=== PATIENT | female | born 1935 | race Caucasian/White ===

== ENCOUNTER 2017-10-14 13:00 | Inpatient (IN) | payer MEDICARE, BC ==
[2017-10-19] MEDS ORDERED: METOCLOPRAMIDE 10 MG TABLET PO ONE (06:00)
[2017-10-19] MEDS ORDERED: CEFAZOLIN 2 Gram 2 GM/50 ML BAG IVPB ONE (06:00)
[2017-10-19] MEDS ORDERED: VANCOMYCIN HCL 1,000 MG in DEXTROSE 5 % IN WATER 250 ML IVPB ONE ×2 (06:00)
[2017-10-19] MEDS ORDERED: CELECOXIB 100 MG CAPSULE PO ONE (06:00)
[2017-10-19] MEDS ORDERED: FAMOTIDINE 20MG TABLET PO ONE (06:00)
[2017-10-19] MEDS ORDERED: MECLIZINE 25 MG TABLET PO ONE (06:00)
[2017-10-19 12:57] LABS: ABO GROUP A; ANTIBODY SCREEN NEGATIVE (NEGATIVE); RH TYPE NEGATIVE
[2017-10-19] MEDS ORDERED: SEVOFLURANE 250 ML INH ONE (14:00)
[2017-10-19] MEDS ORDERED: HYDROMORPHONE HCL 2 MG/ML VIAL IV ONE (14:00)
[2017-10-19] MEDS ORDERED: EPHEDRINE SULFATE 50 MG/ML ML IV ONE (14:00)
[2017-10-19] MEDS ORDERED: LIDOCAINE 2% MDV (20MG/ML) 20ML VIAL IV ONE (14:00)
[2017-10-19] MEDS ORDERED: FENTANYL PF 100MCG/2ML VIAL IV ONE (14:00)
[2017-10-19] MEDS ORDERED: MIDAZOLAM HCL 2MG/2ML VIAL IV ONE (14:00)
[2017-10-19] MEDS ORDERED: ONDANSETRON HCL IV 4 MG/2 ML VIAL IVP ONE (14:00)
[2017-10-19] MEDS ORDERED: PROPOFOL 10 MG/ML VIAL IV ONE (14:00)
[2017-10-19] MEDS ORDERED: ONDANSETRON HCL IV 4 MG/2 ML VIAL IVP PRN (16:58)
[2017-10-19] MEDS ORDERED: ZOLPIDEM TARTRATE 5 MG TABLET PO PRN (16:58)
[2017-10-19] MEDS ORDERED: NALOXONE 0.4 MG/1 ML VIAL IVP PRN (16:58)
[2017-10-19] MEDS ORDERED: DIPHENHYDRAMINE HCL 25 MG CAPSULE PO PRN (16:58)
[2017-10-19] MEDS ORDERED: KETOROLAC 30 MG/ML VIAL IVP PRN ×2 (16:58)
[2017-10-19] MEDS ORDERED: HYDROMORPHONE HCL 2 MG/ML VIAL IM PRN (16:58)
[2017-10-19] MEDS ORDERED: MAGNESIUM HYDROXIDE 30 ML UDC PO PRN (16:58)
[2017-10-19] MEDS ORDERED: AL HYDROX/MAG HYDROX 30ML UD PO PRN (16:58)
[2017-10-19] MEDS ORDERED: ACETAMINOPHEN W/ CODEINE 300MG/60MG TABLET PO PRN ×2 (16:58)
[2017-10-19] MEDS ORDERED: ACETAMINOPHEN 325 MG TAB PO PRN (16:58)
[2017-10-19] MEDS ORDERED: BISACODYL 10 MG SUPP RC PRN (16:58)
[2017-10-19] MEDS ORDERED: BENZONATATE 100 MG CAPSULE PO PRN (17:42)
[2017-10-19] MEDS ORDERED: DICLOFENAC TOP PRN (17:45)
[2017-10-19] MEDS: DOCUSATE SODIUM 100 MG CAPSULE PO SCH (22:17)
[2017-10-19] MEDS: PATIENT OWN MED: CLOPIDOGREL 75 MG PO SCH (22:19)
[2017-10-19] MEDS: PATIENT OWN MED: AZATHIOPRINE 50 MG PO SCH (22:19)
[2017-10-19] MEDS: PATIENT OWN MED: LOSARTAN 50 MG PO SCH (22:20)
[2017-10-19] MEDS: NITROFURANTOIN 100 MG PO SCH (22:21)
[2017-10-19] MEDS: PATIENT OWN MED: OMEPRAZOLE 20 MG PO SCH (22:21)
[2017-10-19] MEDS: PINDOLOL 5 MG PO SCH (22:22)
[2017-10-19] MEDS: CEFAZOLIN 2 Gram 2 GM/50 ML BAG IVPB SCH (22:23)
[2017-10-19] MEDS: POTASSIUM CHLORIDE/D5-0.9%NACL 20 MEQ/1,000 ML BAG IV SCH (22:41)
--- NOTE | 2017-10-19 22:46 | Operative Note ---
DATE OF SURGERY: 10/19/2017 PREOPERATIVE DIAGNOSIS: END-STAGE ARTHROSIS OF THE RIGHT KNEE. POSTOPERATIVE DIAGNOSIS: END-STAGE ARTHROSIS OF THE RIGHT KNEE. PROCEDURE: Cemented right total knee arthroplasty using [employer] Sobia II components, with a size 4 [place] Chrome femur, a size 3 stemmed tibial baseplate, a 9 mm lipped tibial insert, and a 32 mm all-plastic patella. STAFF SURGEON: BAM HOLLINGSWORTH M.D. ANESTHESIA: GENERAL. PREPARATION: CHLORAPREP. INDIVIDUAL CONSIDERATIONS: NONE. PROCEDURE: The patient was taken to the Operating Room and placed supine on the operating table. She had a successful induction of a general anesthetic. Her right lower extremity was prepped and then draped in the usual fashion. The limb was elevated and the tourniquet was inflated to 215 mmHg. The patient had a midline approach to the knee. Sharp dissection was carried down through the skin and subcutaneous tissue. Small veins were coagulated with a Bovie. A medial arthrotomy was performed. The patella was everted and the knee was flexed. The patient basically had [id number] contact throughout. There were large osteophytes consistent more with a degenerative knee. The fat pad was resected, the ACL was basically gone. The capsule was released from the medial proximal tibia and provisional anterior meniscectomies were performed. The initial femoral chief pilot hole was then made free hand. The intramedullary femoral cutting jig was placed. It was cut in 7.0 degrees of valgus and adjusted for rotation, secured with pins for a 10 mm resection. The initial transverse cut was then made. The skin guide was placed for the anterior and posterior chief pilot holes. It was found that a size 4 translated anteriorly 2 mm fit nicely. The anterior and posterior cuts followed by the chamfer cuts were made, osteophytes were removed, and a size 4 trial was placed and found to fit well. The tibia was brought forward and the remainder of the meniscal remnants were removed with a Bovie. The extraarticular tibial cutting jig was placed. It was cut in neutral with a 3 degree AP slope. Care was taken to adjust for rotation and flexion using the extraarticular alignment guide and bony landmarks. It was found that after removing osteophytes, I could easily fit a size 3 baseplate. It was adjusted for rotation and secured with pins. With the 9 mm insert and the femoral trial, there was excellent motion and stability. The femoral chief pilot holes were impacted and the triflange tibial stamp was impacted and these trial components were removed. The patient had a relatively thick patella and roughly 9 mm of bone was removed freehand. It was found I could easily fit a 32 patella and the three chief pilot holes were then drilled. The tourniquet was then let down and hemostasis was obtained posteriorly and then placed back up again. The knee was then thoroughly irrigated out with pulsatile Betadine and saline to remove any visual or palpable debris. Bony surfaces were then dried. The size 3 stemmed tibial baseplate was cemented into place, followed by impaction of the 9 mm lipped tibial insert, followed by cementing in the size 4 [place] Chrome femur, followed by cementing in the 32 mm all-plastic patella. Implant surfaces were compressed, excess cement was removed, and after the cement had set, there was excellent motion and stability, ligamentous balance, rotation and alignment and patellofemoral tracking were normal. No lateral release was required. Again, thorough irrigation. I then infiltrated the skin and periosteum and subcutaneous tissue with 30 mL of 0.5% Marcaine with Epinephrine. The capsule was then closed with a running #2 Quill after dropping the tourniquet and getting hemostasis. The subcu was closed in layers with a running 0 Quill and the skin was closed with brock. I then mixed 30 mL of saline with a gram of Tranexamic Acid and injected it into the knee and a sterile Bulkee compressive NIKHIL-type dressing was applied. The patient tolerated the procedure well. Needle and sponge counts were correct, estimated blood loss was minimal and she was taken back to Recovery in good condition. There were no complications. JOB NUMBER: [id number] MTDD
[2017-10-19] MEDS: PATIENT OWN MED: DIPHENHYDRAMINE 25 MG PO SCH (22:50)
[2017-10-20] MEDS: HYDROCODONE/APAP 10/325 TABLET PO PRN ×5 (00:42→21:18)
[2017-10-20] MEDS: CEFAZOLIN 2 Gram 2 GM/50 ML BAG IVPB SCH ×2 (06:57→15:24)
[2017-10-20 07:18] LABS: BLOOD UREA NITROGEN 23 mg/dL (8-23); CREATININE 0.9 mg/dL (0.5-0.9); EST GLOMERULAR FILTRATION RATE > 60 mL/min; GLUCOSE,RANDOM 167 mg/dL (74-109)
[2017-10-20] MEDS: FERROUS SULFATE 325 MG TAB PO SCH (10:20)
[2017-10-20] MEDS: RIVAROXABAN 10 MG TABLET PO SCH (10:20)
[2017-10-20] MEDS: DOCUSATE SODIUM 100 MG CAPSULE PO SCH ×2 (10:20→21:19)
[2017-10-20] MEDS: PATIENT OWN MED: ASPIRIN 81 MG PO SCH (10:24)
[2017-10-20] MEDS: GABAPENTIN 100 MG PO SCH (10:24)
[2017-10-20] MEDS: IPRATROPIUM INH SCH (10:25)
[2017-10-20] MEDS: PATIENT OWN MED: LOSARTAN 50 MG PO SCH ×2 (10:27→21:24)
[2017-10-20] MEDS: METHYLCOBALAMIN PO SCH (10:28)
[2017-10-20] MEDS: NITROFURANTOIN 100 MG PO SCH ×2 (10:29→21:24)
[2017-10-20] MEDS: PATIENT OWN MED: OMEPRAZOLE 20 MG PO SCH ×2 (10:30→21:25)
[2017-10-20] MEDS: PINDOLOL 5 MG PO SCH ×2 (10:33→21:25)
--- NOTE | 2017-10-20 10:37 | Rehab Evaluation ---
Patient Information - Patient Information Diagnosis: DJD right knee Ordered Treatment: OT Evaluate and Treat Status: Initial Evaluation Surgery: Yes (right total knee) Date of Surgery: 10/19/17 Past Medical/Surgical Hx: PAST MEDICAL/SURGICAL HISTORY Past Surgical History hyst laparotomy bilat cats c scopes EGD with Dilitation PMH - Respiratory Hx Respiratory Disorders Yes Hx Bronchitis Yes Hx Pneumonia Yes Hx Sleep Apnea Yes Hx of CPAP No Hx of SOB Yes: once in a while PMH - Cardiovascular Hx Cardiovascular Disorders Yes Hx Edema Yes: minimally at night at times Hx Hypertension Yes: on meds good control runs low most of the time Hx Irregular Heartbeat Yes: PVC's and PAC's sometimes Hx Palpitations Yes Hx Vascular Disease Yes: has leaky aortic valve Exercise Tolerance Poor Hx Transient Ischemic Attacks Yes: yrs ago no residual on Plavix (TIA) Comment: r/t knee and back PMH - Neuro Hx Neurological Disorders Yes Hx Dizziness Yes: on Gabapentin Hx Headaches Yes: occassionally Hx Transient Ischemic Attacks Yes: yrs ago no residual on Plavix (TIA) PMH - GI Hx Gastrointestinal Disorders Yes Hx Gastroesophageal Reflux Yes 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 She has 1 step, a landing and 1 step at her entrance, no handrailing. She has a walk in shower with 2 seats and a standard height toilet. She has grab bars that are being installed soon and she is borrowing a commode. She has a 4 wheeled walker, 2 wheeled walker and straight cane. She generally uses a straight cane for mobility. 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.) Social History: Detail (Son lives in [place], daughter lives in [facility].) Precautions: [place], Fall, Other (WBAT right knee) - Time With Patient Total Time Spent With Patient (Min): 45 Treatment Procedures: Detail (OT eval low complexity) Subjective Information - Subjective Information Per Patient Objective Data - Pain Pain Present: Yes (05/22) - Mental Status Patient Orientation: Oriented x3 - Visual Perception Appears within normal limits for therapeutic activities (Pt wears glasses) - ROM Within normal limits (Manuel UE AROM WNL) - Strength/Tone Within normal limits (Manuel UE strength WNL) - Coordination Appears within normal limits for therapeutic activities - Bed Mobility Independent (Ind with supine to sit and sit to supine) - Transfers Independent (Ind with sit to stand from EOB and toilet heights.) - Balance Balance Sitting: Good Balance Standing: Good - Sensation Intact - Gait Detail (Pt ambulated in room and hallway with 2 wheeled walker Indly.) - ADL's/IADL's Detail (Pt educated and demonstrated learning of modified LE dressing techniques including doffing slipper socks, briefs and gown and donning underpants, pants, tennis shoes, bra and shirt. She was able to demonstrate Ind with toileting. Reviewed shower and kitchen safety and modifications, pt was able to verbalize understanding.) Therapy Assessment - Therapy Assessment Detail (Pt is safe and Ind with total body dressing and toileting using modified techniques.) Problem List - Problem List Occupational Therapy Problem List: Detail (No current OT problems identified.) Goals - Goals Occupational Therapy Goals: No current IP OT goals identified. Prognosis - Prognosis Good Plan - Plan Occupational Therapy Plan: No further IP OT recommended. Thank you for this referral.
[2017-10-20] MEDS ORDERED: TRANEXAMIC ACID 1,000 MG/10 ML ML IV ONE (10:49)
[2017-10-20] MEDS ORDERED: BUPIVACAINE 0.5% W/EPI MPF 30 ML VIAL IVP ONE (10:49)
--- NOTE | 2017-10-20 11:30 | Rehab Evaluation ---
Patient Information - Patient Information Diagnosis: DJD right knee Ordered Treatment: PT Evaluate and Treat Status: Initial Evaluation Surgery: Yes (right total knee) Date of Surgery: 10/19/17 Past Medical/Surgical Hx: PAST MEDICAL/SURGICAL HISTORY Past Surgical History hyst laparotomy bilat cats c scopes EGD with Dilitation PMH - Respiratory Hx Respiratory Disorders Yes Hx Bronchitis Yes Hx Pneumonia Yes Hx Sleep Apnea Yes Hx of CPAP No Hx of SOB Yes: once in a while PMH - Cardiovascular Hx Cardiovascular Disorders Yes Hx Edema Yes: minimally at night at times Hx Hypertension Yes: on meds good control runs low most of the time Hx Irregular Heartbeat Yes: PVC's and PAC's sometimes Hx Palpitations Yes Hx Vascular Disease Yes: has leaky aortic valve Exercise Tolerance Poor Hx Transient Ischemic Attacks Yes: yrs ago no residual on Plavix (TIA) Comment: r/t knee and back PMH - Neuro Hx Neurological Disorders Yes Hx Dizziness Yes: on Gabapentin Hx Headaches Yes: occassionally Hx Transient Ischemic Attacks Yes: yrs ago no residual on Plavix (TIA) PMH - GI Hx Gastrointestinal Disorders Yes Hx Gastroesophageal Reflux Yes 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 She has 1 step, a landing and 1 step at her entrance, no handrailing. She has a walk in shower with 2 seats and a standard height toilet. She has grab bars that are being installed soon and she is borrowing a commode. She has a 4 wheeled walker, 2 wheeled walker and straight cane. She generally uses a straight cane for mobility. 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.) Social History: Detail (Son lives in [place], daughter lives in [facility].) Precautions: [place], Fall, Other (WBAT right knee) - Time With Patient Total Time Spent With Patient (Min): 30 Treatment Procedures: Detail (Initial Evaluation) Subjective Information - Subjective Information Per Patient (The patient had complaints of L knee pain, level 4 using 0 to 10 pain scale.) Objective Data - Mental Status Patient Orientation: Oriented x3 - Visual Perception Appears within normal limits for therapeutic activities - ROM Not within normal limits (The patient's R knee AROM is limited as to be expected following surgery. All other LE AROM is WNL.) - Strength/Tone Not within normal limits (The patient's R LE strength was not tested secondary to s/p surgery, however strength is functional ie : patient is able to complete a SLR . The patient's R LE strength is 4+ to 5/5.) - Bed Mobility Independent (The patient is independent with supine to and from sit transfer.) - Transfers Independent (The patient was independent with sit to and from stand transfer.) - Balance Balance Sitting: Good Balance Standing: Good - Sensation Intact - Gait Detail (The patient ambulated with 2 wheeled walker independently weight bearing as tolerated on the R LE a distance of 54 feet x 1. The patient ambulated on 3 steps with use of railing and one cane with supervision for safety only using proper technique.) Therapy Assessment - Therapy Assessment Detail (The patient was independent with bed mobility , transfers and ambulation on levels. The patient ambulated safely on stairs with supervision for safety only. The patient expressed she was fearful of stairs and requested another practice session.) Patient Education - Patient Education Teaching Topic: Exercise/Activity (The patient completed TKA R LE exercises including ankle pumps, quad sets, gluteal set, hamstring sets and seated heel slides. SLR will be reviewed this pm.) Response: Return Demonstration Teaching Method: Demonstration, Handout Teaching Recipient: Patient Barriers To Learning: Age Related Problem List - Problem List Physical Therapy Problem List: Detail (Decreased R LE strength and AROM of R knee as to be expected following surgery.) Occupational Therapy Problem List: Detail (No current OT problems identified.) Goals - Goals Physical Therapy Goals: The patient will be independent with TKA HEP. Occupational Therapy Goals: No current IP OT goals identified. Prognosis - Prognosis Good Plan - Plan Physical Therapy Plan: PT for one more session for gait training on stairs and instruction in HEP. Occupational Therapy Plan: No further IP OT recommended. Thank you for this referral.
[2017-10-20 13:59] LABS: IMMED. SPIN CROSSMATCH COMPATIBLE
[2017-10-20] MEDS: POTASSIUM CHLORIDE/D5-0.9%NACL 20 MEQ/1,000 ML BAG IV SCH ×3 (14:29→18:56)
--- NOTE | 2017-10-20 14:48 | Physical Therapy Tx Note ---
Physical Therapy Tx Note - Treatment Note Tolerated: Good Total Time Spent With Patient: 15 Physical Therapy Tx Note: Detail (The patient was in bed sleeping when PT arrived. The patient ambulated with 2 wheeled walker 54 feet x 1 independently WBAT on the R LE. The patient ambulated on 3 stairs with one railing and cane with supervision for safety. The patient ambulated with cane per request 54 feet with verbal cues for proper technique. The patient's HEP was reviewed including supine heel slides and SLR.) Physical Therapy Problem List: Detail (Decreased R LE strength and AROM of R knee as to be expected following surgery.) Physical Therapy Goals: The patient will be independent with TKA HEP. Physical Therapy Plan: PT for one more session for gait training on stairs and review of HEP.
[2017-10-20] MEDS: PATIENT OWN MED: DIPHENHYDRAMINE 25 MG PO SCH (21:24)
[2017-10-20] MEDS: PATIENT OWN MED: CLOPIDOGREL 75 MG PO SCH (21:24)
[2017-10-20] MEDS: PATIENT OWN MED: AZATHIOPRINE 50 MG PO SCH (21:24)
[2017-10-21] MEDS: HYDROCODONE/APAP 10/325 TABLET PO PRN ×6 (00:07→20:18)
[2017-10-21 06:45] LABS: HEMATOCRIT 28.8 % (35.0-47.0); HEMOGLOBIN 9.1 gm/dl (11.6-16.0)
[2017-10-21 07:03] LABS: BLOOD UREA NITROGEN 17 mg/dL (8-23); CREATININE 0.8 mg/dL (0.5-0.9); EST GLOMERULAR FILTRATION RATE > 60 mL/min; GLUCOSE,RANDOM 115 mg/dL (74-109)
[2017-10-21] MEDS: POTASSIUM CHLORIDE/D5-0.9%NACL 20 MEQ/1,000 ML BAG IV SCH (08:33)
[2017-10-21] MEDS: DOCUSATE SODIUM 100 MG CAPSULE PO SCH ×2 (10:20→21:13)
[2017-10-21] MEDS: FERROUS SULFATE 325 MG TAB PO SCH (10:20)
[2017-10-21] MEDS: GABAPENTIN 100 MG PO SCH (10:23)
[2017-10-21] MEDS: PATIENT OWN MED: ASPIRIN 81 MG PO SCH (10:23)
[2017-10-21] MEDS: IPRATROPIUM INH SCH (10:24)
[2017-10-21] MEDS: METHYLCOBALAMIN PO SCH (10:25)
--- NOTE | 2017-10-21 10:25 | Physical Therapy Tx Note ---
Physical Therapy Tx Note - Treatment Note Tolerated: Good Total Time Spent With Patient: 35 Physical Therapy Tx Note: Detail (Patient states right knee very painful today. Patient was reclined in bed upon RELIEF CHARGE NURSE arrival. Patient performed the following exercises 10 reps each: ankle pumps, glut squeezes, quad sets, heel slides, hamstring sets, and SLR with assist. Patient transferred supine to sit min assist to support right LE. Patient transferred sit to and from stand CGA x1. Patient ambulated 31 feet with wheeled walker CGA x1. Patient transferred sit to and from stand CGA x1. Patient ambulated 13 feet with wheeled walker CGA x1. Patient transferred sit to supine independently. Patient tolerated treatment well. Patient displays decreased strength and endurance with exercises. Patient was left reclined in bed with call light within reach.) Physical Therapy Problem List: Detail (Decreased R LE strength and AROM of R knee as to be expected following surgery.) Physical Therapy Goals: The patient will be independent with TKA HEP. Prognosis: Good Physical Therapy Plan: Patient has met goals will monitor patient for any further needs.
[2017-10-21] MEDS: PATIENT OWN MED: OMEPRAZOLE 20 MG PO SCH ×2 (10:26→21:13)
[2017-10-21] MEDS: NITROFURANTOIN 100 MG PO SCH ×2 (10:26→21:14)
[2017-10-21] MEDS: PINDOLOL 5 MG PO SCH ×2 (10:31→21:15)
[2017-10-21] MEDS: PATIENT OWN MED: LOSARTAN 50 MG PO SCH ×2 (10:31→21:16)
[2017-10-21] MEDS: RIVAROXABAN 10 MG TABLET PO SCH (10:37)
[2017-10-21] MEDS: PATIENT OWN MED: AZATHIOPRINE 50 MG PO SCH (21:14)
[2017-10-21] MEDS: PATIENT OWN MED: DIPHENHYDRAMINE 25 MG PO SCH (21:17)
[2017-10-21] MEDS: PATIENT OWN MED: CLOPIDOGREL 75 MG PO SCH (21:17)
[2017-10-22] MEDS: HYDROCODONE/APAP 10/325 TABLET PO PRN ×2 (01:13→05:42)
[2017-10-22] MEDS: RIVAROXABAN 10 MG TABLET PO SCH (09:46)
[2017-10-22] MEDS: PATIENT OWN MED: OMEPRAZOLE 20 MG PO SCH (09:46)
[2017-10-22] MEDS: FERROUS SULFATE 325 MG TAB PO SCH (09:46)
[2017-10-22] MEDS: DOCUSATE SODIUM 100 MG CAPSULE PO SCH (09:46)
[2017-10-22] MEDS: NITROFURANTOIN 100 MG PO SCH (09:47)
[2017-10-22] MEDS: PATIENT OWN MED: LOSARTAN 50 MG PO SCH (09:48)
[2017-10-22] MEDS: PINDOLOL 5 MG PO SCH (09:49)
[2017-10-22] MEDS: PATIENT OWN MED: ASPIRIN 81 MG PO SCH (09:49)
[2017-10-22] MEDS: GABAPENTIN 100 MG PO SCH (09:50)
[2017-10-22] MEDS: IPRATROPIUM INH SCH (09:50)
[2017-10-22] MEDS: METHYLCOBALAMIN PO SCH (09:50)
--- NOTE | 2017-10-23 21:51 | Discharge Summary ---
DATE OF ADMISSION: 10/19/2017 DATE OF DISCHARGE: 10/22/2017 DATE OF SURGERY: 10/19/2017 HISTORY: Luisa is an 82-year-old female who presents with end-stage arthrosis of her right knee. She was admitted after a right total knee arthroplasty. Postoperatively, her hemoglobin dropped to 8 but she has chronic anemia and takes Procrit and because of her chronic anemia, we did elect to give her a unit of blood. Her discharge hemoglobin was 9.1. Her hospital course was otherwise unremarkable except for pain. Initially, she wanted to go to rehab but she was doing well enough just to go home. DISCHARGE INSTRUCTIONS: The plan is to discharge her to home in the care of her family. Home PT and Visiting Nurse will be arranged. Her sutures will be removed in two weeks. She has had a total of three doses of Xarelto. She will take two additional doses at home and she will continue with her regular Aspirin and Plavix that she takes chronically. She will given [place] for pain. She will follow-up in my office in four weeks. Her discharge condition was good. FINAL DIAGNOSIS/PRIMARY DIAGNOSIS: END-STAGE ARTHROSIS OF THE RIGHT KNEE. SECONDARY DIAGNOSES: 1. CHRONIC ANEMIA. 2. ACUTE OPERATIVE BLOOD LOSS ANEMIA. OPERATIONS AND PROCEDURES: CEMENTED RIGHT TOTAL KNEE ARTHROPLASTY. JOB NUMBER: [id number] MTDD
--- NOTE | 2017-10-24 20:50 | RADIOLOGY REPORT ---
EXAM: CHEST 1 VIEW HISTORY: REHAB PLACEMENT. TECHNIQUE: A single upright AP view of the chest is obtained. COMPARISON: None. FINDINGS: The heart projects mildly enlarged without pulmonary venous hypertension. The lungs are borderline to mildly hyperinflated. No definite confluent airspace opacity is seen, nor is there costophrenic angle blunting or pneumothorax. There are degenerative changes of the visualized spine and shoulder girdles. IMPRESSION: MILD CARDIOMEGALY WITHOUT PULMONARY VENOUS HYPERTENSION. NO CONVINCING EVIDENCE OF AN ACUTE PULMONARY PROCESS. J[facility]BER: [id number] [facility]
== END 2017-10-22 12:55 | disposition home health service (06) | DRG 470 ==
LOC: MEDSURG 10-19 11:58
PROVIDERS: ADMIT Orthopaedic Surgery; ATTEND Orthopaedic Surgery
PROC: 0SRC069 Replacement of Right Knee Joint with Oxidized Zirconium on Polyethylene Synthetic Substitute, Cemented, Open Approach (ICD-10-PCS; principal; 2017-10-19 14:00)
DX: M17.11 Unilateral primary osteoarthritis, right knee (principal); G45.9 Transient cerebral ischemic attack, unspecified; I10 Essential (primary) hypertension; M06.9 Rheumatoid arthritis, unspecified; D53.9 Nutritional anemia, unspecified; G47.30 Sleep apnea, unspecified
CPT/HCPCS: 71045; 80048; 85014; 85018; 86850; 86900; 86901; 94760; 97110; 97530; C1776; J1885; J2405; J3480

== ENCOUNTER 2018-05-03 13:00 | Inpatient (IN) | payer MEDICARE, BC ==
[2018-05-17] MEDS ORDERED: CELECOXIB 100 MG CAPSULE PO ONE (06:00)
[2018-05-17] MEDS ORDERED: METOCLOPRAMIDE 10 MG TABLET PO ONE (06:00)
[2018-05-17] MEDS ORDERED: FAMOTIDINE 20MG TABLET PO ONE (06:00)
[2018-05-17] MEDS ORDERED: CEFAZOLIN 2 Gram 2 GM/50 ML BAG IVPB ONE (06:00)
[2018-05-17] MEDS ORDERED: MECLIZINE 25 MG TABLET PO ONE (06:00)
[2018-05-17] MEDS ORDERED: VANCOMYCIN HCL 1,000 MG in DEXTROSE 5 % IN WATER 250 ML IVPB ONE ×2 (06:00)
[2018-05-17 07:33] LABS: ABO GROUP A; RH TYPE NEGATIVE
[2018-05-17 09:28] LABS: ANTIBODY SCREEN NEGATIVE (NEGATIVE)
[2018-05-17] MEDS ORDERED: KETOROLAC 30 MG/ML VIAL IVP PRN ×2 (11:06)
[2018-05-17] MEDS ORDERED: ONDANSETRON HCL IV 4 MG/2 ML VIAL IVP PRN (11:06)
[2018-05-17] MEDS ORDERED: NALOXONE 0.4 MG/1 ML VIAL IVP PRN (11:06)
[2018-05-17] MEDS ORDERED: HYDROMORPHONE HCL 2 MG/ML VIAL IM PRN (11:06)
[2018-05-17] MEDS ORDERED: ZOLPIDEM TARTRATE 5 MG TABLET PO PRN (11:06)
[2018-05-17] MEDS ORDERED: DIPHENHYDRAMINE HCL 25 MG CAPSULE PO PRN (11:06)
[2018-05-17] MEDS ORDERED: HYDROCODONE/APAP 10/325 TABLET PO PRN ×2 (11:06)
[2018-05-17] MEDS ORDERED: MAGNESIUM HYDROXIDE 30 ML UDC PO PRN (11:06)
[2018-05-17] MEDS ORDERED: AL HYDROX/MAG HYDROX 30ML UD PO PRN (11:06)
[2018-05-17] MEDS ORDERED: BISACODYL 10 MG SUPP RC PRN (11:06)
[2018-05-17] MEDS ORDERED: ACETAMINOPHEN 325 MG TAB PO PRN (11:06)
[2018-05-17] MEDS ORDERED: BENZONATATE 100 MG CAPSULE PO PRN (11:28)
[2018-05-17] MEDS ORDERED: SEVOFLURANE 250 ML INH ONE (14:00)
[2018-05-17] MEDS ORDERED: EPHEDRINE SULFATE 50 MG/ML ML IV ONE (14:00)
[2018-05-17] MEDS ORDERED: FENTANYL PF 100MCG/2ML VIAL IV ONE (14:00)
[2018-05-17] MEDS ORDERED: HYDROMORPHONE HCL 2 MG/ML VIAL IV ONE (14:00)
[2018-05-17] MEDS ORDERED: LIDOCAINE 2% MDV (20MG/ML) 20ML VIAL IV ONE (14:00)
[2018-05-17] MEDS ORDERED: ROPIVACAINE HCL (NAROPIN) /PF 5MG/ML 20ML VIAL IV ONE (14:00)
[2018-05-17] MEDS ORDERED: ONDANSETRON HCL IV 4 MG/2 ML VIAL IVP ONE (14:00)
[2018-05-17] MEDS ORDERED: DEXAMETHASONE 4 MG/ML 1ML VIAL IVP ONE ×2 (14:00)
[2018-05-17] MEDS ORDERED: PROPOFOL 10 MG/ML VIAL IV ONE (14:00)
--- NOTE | 2018-05-17 14:55 | Rehab Evaluation ---
Patient Information - Patient Information Diagnosis: L knee DJD Ordered Treatment: PT Evaluate and Treat Status: Initial Evaluation Surgery: Yes (L TKA) Date of Surgery: 05/17/18 Past Medical/Surgical Hx: PAST MEDICAL/SURGICAL HISTORY Past Surgical History RTKA 10-19-17 hyst laparotomy bilat cats c scopes EGD with Dilitation PMH - Respiratory Hx Respiratory Disorders Yes Hx Bronchitis Yes Hx Pneumonia Yes Hx Sleep Apnea Yes Hx of CPAP No Hx of URI Yes Hx of SOB Yes: once in a while PMH - Cardiovascular Hx Cardiovascular Disorders Yes Hx Abnormal EKG Yes Hx Edema Yes: minimally at night at times Hx Hypertension Yes: on meds good control runs low most of the time Hx Irregular Heartbeat Yes: PVC's and PAC's sometimes Hx Palpitations Yes Hx Vascular Disease Yes: has leaky aortic valve Exercise Tolerance Fair Hx Transient Ischemic Attacks Yes: yrs ago no residual on Plavix (TIA) Comment: r/t knee and back PMH - Neuro Hx Neurological Disorders Yes Hx Dizziness Yes Hx Headaches Yes: occassionally Hx Neuropathy Yes Hx Transient Ischemic Attacks Yes: yrs ago no residual on Plavix (TIA) PMH - GI Hx Gastrointestinal Disorders Yes Hx Gastroesophageal Reflux Yes Hx Weight Loss/Weight Gain Yes: losing weight 10 lbs recently Hx of Loss of Appetite Yes: no appetite not eatting much at all 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 PMH - Hx Genitourinary Disorders Yes Hx Renal Disease Yes: stage 3 renal failure Comment: PT STATES RENAL FAILURE LABS WNL PMH - Endocrine Hx Endocrine Disorders No PMH - Musculoskeletal Hx Musculoskeletal Disorders Yes Hx Arthritis Yes: LEFT KNEE PMH - Psych Hx Psychiatric Problems No PMH - Hematology/Oncology Hx Hematology/Oncology Yes Disorders Hx Anemia Yes: takes Procrit every 10 days Hx Bruising Yes: on Plavix Hx Blood Transfusion Reaction No Comment: body doesnt produce RBC's like it should x's 20 yrs Social History: Detail (The patient lives alone in a one story house with one step, a landing and one step without railings. The patient's bathroom is equipped with a walk in shower, grab bars, hand held shower and a standard toilet with grab bars. The patient has a two wheeled walker, cane, and shower bench.) Precautions: [place], Fall, Other (WBAT on the L LE.) - Time With Patient Total Time Spent With Patient (Min): 30 Treatment Procedures: Detail (Initial Evaluation, gait training) Subjective Information - Subjective Information Per Patient (The patient had no complaints of pain.) Objective Data - Mental Status Patient Orientation: Oriented x3 - Visual Perception Appears within normal limits for therapeutic activities - ROM Not within normal limits (The patient's L knee AROM was limited as to be expected s/p surgery. All other AROM was WNL.) - Strength/Tone Not within normal limits (The patient's L LE was not tested secondary to s/p however was functional ie: the patient was able to complete a SLR. The patient' s R LE strength was WFL.) - Bed Mobility Independent (The patient was independent with supine to and from sit and scooting up in bed.) - Transfers Independent (The patient was independent with sit to and from stand transfer and supervision for safety only with toilet transfer.) - Balance Balance Sitting: Good Balance Standing: Good - Sensation Intact - Gait Detail (The patient ambulated with front wheeled walker from bed to bathroom ( 7 1/2 feet x 1), 40 feet x 1 WBAT on the L LE with CG/ supervision for safety of 1.) Therapy Assessment - Therapy Assessment Detail (The patient was independent with bed mobility, transfers and ambulated with supervision for safety. Feel the patient will progress well with mobility. Due to the patient's stable condition PT complexity was rated as low.) Problem List - Problem List Physical Therapy Problem List: Detail (1) Decreased L knee AROM 2) Decreased L LE strength) Goals - Goals Physical Therapy Goals: 1) The patient will ambulate with appropriate assistive device community distances WBAT on the L LE, independently. 2) The patient will ambulate on stairs with supervision for safety. 3) The patient will be independent with TKA HEP. Prognosis - Prognosis Good Plan - Plan Physical Therapy Plan: PT 1-2 times a day until all inpatient PT goals have been met for gait training on levels and stairs and instruction in HEP.
[2018-05-17] MEDS ORDERED: RIVAROXABAN 10 MG TABLET PO SCH (16:00)
[2018-05-17] MEDS: POTASSIUM CHLORIDE/D5-0.9%NACL 20 MEQ/1,000 ML BAG IV SCH (16:43)
[2018-05-17] MEDS: RIVAROXABAN 10 MG TABLET PO SCH (16:44)
[2018-05-17] MEDS: CEFAZOLIN 2 Gram 2 GM/50 ML BAG IVPB SCH (16:45)
[2018-05-17] MEDS: DOCUSATE SODIUM 100 MG CAPSULE PO SCH (21:50)
[2018-05-17] MEDS: PATIENT OWN MED: AZATHIOPRINE 50 MG PO SCH (21:51)
[2018-05-17] MEDS: PATIENT OWN MED: CLOPIDOGREL 75 MG PO SCH (21:52)
[2018-05-17] MEDS: DIPHENHYDRAMINE 25 MG PO SCH (21:53)
[2018-05-17] MEDS: PATIENT OWN MED: RANITIDINE 150 MG PO SCH (21:56)
[2018-05-17] MEDS: PINDOLOL 5 MG PO SCH (21:56)
[2018-05-18] MEDS: POTASSIUM CHLORIDE/D5-0.9%NACL 20 MEQ/1,000 ML BAG IV SCH ×4 (00:38→21:34)
[2018-05-18] MEDS: CEFAZOLIN 2 Gram 2 GM/50 ML BAG IVPB SCH ×3 (00:40→11:46)
[2018-05-18] MEDS: ACETAMINOPHEN W/ CODEINE 300MG/60MG TABLET PO PRN ×5 (00:43→19:20)
[2018-05-18 06:59] LABS: HEMATOCRIT 25.7 % (35.0-47.0); HEMOGLOBIN 7.8 gm/dl (11.6-16.0)
[2018-05-18 07:13] LABS: BLOOD UREA NITROGEN 11 mg/dL (8-23); CREATININE 0.8 mg/dL (0.5-0.9); EST GLOMERULAR FILTRATION RATE > 60 mL/min; GLUCOSE,RANDOM 130 mg/dL (74-109)
[2018-05-18] MEDS: FERROUS SULFATE 325 MG TAB PO SCH (10:18)
[2018-05-18] MEDS: DOCUSATE SODIUM 100 MG CAPSULE PO SCH ×2 (10:18→21:22)
[2018-05-18] MEDS: PATIENT OWN MED: ASPIRIN 81 MG PO SCH (10:25)
[2018-05-18] MEDS: GABAPENTIN 100 MG PO SCH (10:26)
[2018-05-18] MEDS: IPRATROPIUM 0.06% INH SCH (10:26)
[2018-05-18] MEDS: REFRESH EYE OPTH SCH (10:28)
[2018-05-18] MEDS: PINDOLOL 5 MG PO SCH ×2 (10:29→21:33)
[2018-05-18] MEDS: PATIENT OWN MED: RANITIDINE 150 MG PO SCH ×2 (10:29→22:41)
[2018-05-18] MEDS ORDERED: BUPIVACAINE 0.5% W/EPI MPF 30 ML VIAL IVP ONE (10:56)
[2018-05-18] MEDS ORDERED: TRANEXAMIC ACID 1,000 MG/10 ML ML IV ONE (10:56)
[2018-05-18] MEDS ORDERED: EPHEDRINE SULFATE 50 MG/ML ML IV ONE (11:09)
[2018-05-18] MEDS ORDERED: ONDANSETRON HCL IV 4 MG/2 ML VIAL IVP ONE (11:09)
[2018-05-18] MEDS ORDERED: DEXAMETHASONE 4 MG/ML 1ML VIAL IVP ONE (11:09)
[2018-05-18] MEDS ORDERED: LIDOCAINE 2% MDV (20MG/ML) 20ML VIAL IV ONE (11:09)
[2018-05-18] MEDS ORDERED: FENTANYL PF 100MCG/2ML VIAL IV ONE (11:09)
[2018-05-18] MEDS ORDERED: HYDROMORPHONE HCL 2 MG/ML VIAL IV ONE (11:09)
[2018-05-18] MEDS ORDERED: SEVOFLURANE 250 ML INH ONE (11:09)
[2018-05-18] MEDS ORDERED: PROPOFOL 10 MG/ML VIAL IV ONE (11:09)
--- NOTE | 2018-05-18 11:44 | Physical Therapy Tx Note ---
Physical Therapy Tx Note - Treatment Note Tolerated: Good Total Time Spent With Patient: 25 Physical Therapy Tx Note: Detail (The patient was up in chair when PT arrived and had complaints of L knee pain but did not rate her pain using the 0-10 pain scale. The patient ambulated with front wheeled walker with supervision for safety only WBAT on the L LE a distance of 50 feet x 1. The patient declined ambulating on stairs due to fatigue. The patient was independent with sit to and from stand transfer. The patient completed the following TKA exercises including: supine heel slides, SLR, ankle pumps, quad sets, gluteal sets, hamstring sets. The patient did well with mobility and presents with numerous gait deviations as to be expected following TKA surgery ie: decreased knee flexion L LE decreased L hip drop during swing phase, exaggerated trunk rotation. Will see patient this pm for stair climbing.) Physical Therapy Problem List: Detail (1) Decreased L knee AROM 2) Decreased L LE strength) Physical Therapy Goals: 1) The patient will ambulate with appropriate assistive device community distances WBAT on the L LE, independently. (Goal partially met- Household distances). 2) The patient will ambulate on stairs with supervision for safety. 3) The patient will be independent with TKA HEP.(Goal Met) Physical Therapy Plan: Will see patient for stair climbing this pm.
--- NOTE | 2018-05-18 12:50 | Rehab Evaluation ---
Patient Information - Patient Information Diagnosis: L knee DJD Ordered Treatment: OT Evaluate and Treat Status: Initial Evaluation Surgery: Yes (L TKA) Date of Surgery: 05/17/18 Past Medical/Surgical Hx: PAST MEDICAL/SURGICAL HISTORY Past Surgical History RTKA 10-19-17 hyst laparotomy bilat cats c scopes EGD with Dilitation PMH - Respiratory Hx Respiratory Disorders Yes Hx Bronchitis Yes Hx Pneumonia Yes Hx Sleep Apnea Yes Hx of CPAP No Hx of URI Yes Hx of SOB Yes: once in a while PMH - Cardiovascular Hx Cardiovascular Disorders Yes Hx Abnormal EKG Yes Hx Edema Yes: minimally at night at times Hx Hypertension Yes: on meds good control runs low most of the time Hx Irregular Heartbeat Yes: PVC's and PAC's sometimes Hx Palpitations Yes Hx Vascular Disease Yes: has leaky aortic valve Exercise Tolerance Fair Hx Transient Ischemic Attacks Yes: yrs ago no residual on Plavix (TIA) Comment: r/t knee and back PMH - Neuro Hx Neurological Disorders Yes Hx Dizziness Yes Hx Headaches Yes: occassionally Hx Neuropathy Yes Hx Transient Ischemic Attacks Yes: yrs ago no residual on Plavix (TIA) PMH - GI Hx Gastrointestinal Disorders Yes Hx Gastroesophageal Reflux Yes Hx Weight Loss/Weight Gain Yes: losing weight 10 lbs recently Hx of Loss of Appetite Yes: no appetite not eatting much at all 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 PMH - Hx Genitourinary Disorders Yes Hx Renal Disease Yes: stage 3 renal failure Comment: PT STATES RENAL FAILURE LABS WNL PMH - Endocrine Hx Endocrine Disorders No PMH - Musculoskeletal Hx Musculoskeletal Disorders Yes Hx Arthritis Yes: LEFT KNEE PMH - Psych Hx Psychiatric Problems No PMH - Hematology/Oncology Hx Hematology/Oncology Yes Disorders Hx Anemia Yes: takes Procrit every 10 days Hx Bruising Yes: on Plavix Hx Blood Transfusion Reaction No Comment: body doesnt produce RBC's like it should x's 20 yrs Social History: Detail (The patient lives alone in a one story house with one step, a landing and one step without railings. The patient's bathroom is equipped with a walk in shower, shower seat, grab bars, hand held shower and a standard toilet with grab bars. The patient has a two wheeled walker, cane, four wheeled walker and shower bench.) Precautions: [place], Fall, Other (WBAT on the L LE.) - Time With Patient Total Time Spent With Patient (Min): 35 Treatment Procedures: Detail (OT eval low complexity) Subjective Information - Subjective Information Per Patient Objective Data - Pain Pain Present: No (Pt reports no pain initially although she reported increased pain with ADL activity.) - Mental Status Patient Orientation: Oriented x3 - Visual Perception Appears within normal limits for therapeutic activities - ROM Within normal limits (Manuel UE AROM WNL) - Strength/Tone Within normal limits (Manuel UE strength WNL) - Coordination Appears within normal limits for therapeutic activities - Transfers Independent (Ind with sit to stand from chair height.) - Balance Balance Sitting: Good Balance Standing: Good - Sensation Intact - ADL's/IADL's Detail (Pt educated and able to demonstrate learning of modified LE dressing techniques including donning pants and slip on shoes. Reviewed kitchen and shower safety and modifications. Pt expressed concern that she will not have anyone to assist her after discharge and she is worried about med management and IADL tasks.) Therapy Assessment - Therapy Assessment Detail (Pt demonstrates Ind with modified LE dressing techniques. She expresses concern about going home alone and feels a short rehab stay would be beneficial.) Problem List - Problem List Physical Therapy Problem List: Detail (1) Decreased L knee AROM 2) Decreased L LE strength) Occupational Therapy Problem List: Detail (1. Pt concern re: discharge home alone with IADL and med mgmt.) Goals - Goals Physical Therapy Goals: 1) The patient will ambulate with appropriate assistive device community distances WBAT on the L LE, independently. (Goal partially met- Household distances). 2) The patient will ambulate on stairs with supervision for safety. 3) The patient will be independent with TKA HEP.(Goal Met) Occupational Therapy Goals: 1. Pt will demonstrate Ind with IADLs and verbalize Ind with med mgmt. Prognosis - Prognosis Good Plan - Plan Physical Therapy Plan: Will see patient for stair climbing this pm. Occupational Therapy Plan: Pt may benefit from short IP rehab stay to ensure safety and Ind with IADLs. OT will continue 2-4 times per week until discharge.
[2018-05-18] MEDS: TRAMADOL HCL 50 MG TABLET PO PRN (14:49)
--- NOTE | 2018-05-18 14:53 | Physical Therapy Tx Note ---
Physical Therapy Tx Note - Treatment Note Tolerated: Fair Total Time Spent With Patient: 15 Physical Therapy Tx Note: Detail (The patient declined stair climbing this pm secondary to back and L knee pain. The patient ambulated with front wheeled walker a distance of 130 feet x 1 WBAT on the L LE with supervision for safety. The patient had more complaints of pain this afternoon.) Physical Therapy Problem List: Detail (1) Decreased L knee AROM 2) Decreased L LE strength) Physical Therapy Goals: 1) The patient will ambulate with appropriate assistive device community distances WBAT on the L LE, independently. (Goal partially met- Household distances). 2) The patient will ambulate on stairs with supervision for safety. 3) The patient will be independent with TKA HEP.(Goal Met) Physical Therapy Plan: Continue PT 1-2 times a day for gait training on levels and stairs, LE ROM exercises and exercises to improve patient's gait pattern.
[2018-05-18] MEDS: RIVAROXABAN 10 MG TABLET PO SCH (17:34)
[2018-05-18] MEDS: PATIENT OWN MED: AZATHIOPRINE 50 MG PO SCH (21:25)
[2018-05-18] MEDS: PATIENT OWN MED: CLOPIDOGREL 75 MG PO SCH (21:33)
[2018-05-18] MEDS: DIPHENHYDRAMINE 25 MG PO SCH (21:33)
[2018-05-19] MEDS: ACETAMINOPHEN W/ CODEINE 300MG/60MG TABLET PO PRN ×5 (00:39→21:23)
--- NOTE | 2018-05-19 05:40 | RADIOLOGY REPORT ---
EXAM: CHEST HISTORY: CHEST DISCOMFORT. TECHNIQUE: Two views of the chest were obtained. Comparison: 10/21/17. FINDINGS: There is a moderate sized hiatal hernia. The heart is not enlarged and there is no mediastinal mass. There is no acute infiltrate or vascular congestion identified. The lungs are hyperinflated. IMPRESSION: 1. MODERATE SIZED HIATAL HERNIA. 2. NO ACUTE CARDIAC OR PULMONARY ABNORMALITY. JOB NUMBER: [id number] MTDD
[2018-05-19 06:42] LABS: HEMOGLOBIN 8.8 gm/dl (11.6-16.0)
[2018-05-19 06:55] LABS: BLOOD UREA NITROGEN 11 mg/dL (8-23); CREATININE 0.7 mg/dL (0.5-0.9); EST GLOMERULAR FILTRATION RATE > 60 mL/min; GLUCOSE,RANDOM 90 mg/dL (74-109)
--- NOTE | 2018-05-19 08:40 | Operative Note ---
DATE OF SURGERY: 05/17/2018 Surgeon: Malachi Ochoa M.D. PREOPERATIVE DIAGNOSIS: Endstage arthrosis of the left knee. POSTOPERATIVE DIAGNOSIS: Endstage arthrosis of the left knee. OPERATION: Cemented left total knee arthroplasty using [employer] components, with a size 4 [place] chrome femur, a size 3 stem tibia base plate, an 11 mm lipped tibial insert, and a 32 mm all plastic patella. Anesthesia: General. PREPARATION: Chloraprep. INDIVIDUAL CONSIDERATIONS: None. PROCEDURE: The patient was taken to the operating room and placed supine on the operating room table. She had a successful induction with general anesthetic. Her left lower extremity was prepped and draped in the usual fashion. The limb was elevated, the tourniquet was inflated to 250 mmHg. The patient had a midline approach to the knee. Sharp dissection carried down through the skin and subcutaneous tissue, small veins were coagulated with the Bovie. A medial arthrotomy was performed, the patella was everted, the knee was flexed. She had exposed bone throughout. The fat pad was resected, ACL was sacrificed, provisional anterior meniscectomies were performed and the capsule was released from the medial proximal tibia. The initial femoral pilot instructor hole was then made free hand. The intramedullary femoral cutting jig was placed. It was cut in 7.0 degrees of valgus and adjusted for rotation, secured with pins for a 10 mm resection. The initial transverse cut was then made. A skid guide was placed in the anterior and posterior pilot instructor holes. It was found that a size 4 would be appropriate. The anterior and posterior cuts followed by chamfer cuts were made, osteophytes removed, and a size 4 trial was placed and found to fit well. The tibia was brought forward and the remainder of the meniscal remnants were removed with a Bovie. The extraarticular tibial cutting jig was placed. It was cut in neutral with a 3 degree AP slope. Care was taken to adjust for rotation and flexion using the extra-articular alignment guide and the bony landmarks. It was set for a 9 mm resection keyed off the high lateral side and secured with pins. When cutting the tibia, care was taken to preserve the PCL insertion on the tibia. After removing osteophytes, I could fit a size 3, it was adjusted for rotation and secured with pins with a femoral trial and an 11 mm lipped trial. There was excellent motion stability, ligamentous balance and rotation alignment were thought to be normal. Femoral pilot instructor holes were impacted, the femoral keel stamp was impacted and these trial components were removed. The tourniquet was let down briefly to get bleeders posteriorly and then placed back up again. The patient had a reasonably thick patella, roughly 9 mm of bone were removed free hand. I was able to fit a 32 patella and the 3 pilot instructor holes were drilled. The knee was then thoroughly irrigated out with pulsatile saline to remove visual or palpable debris. The bony surfaces were then dried. A size 3 stem tibia baseplate was cemented into place, followed by impaction of the 11 mm lipped tibial insert, followed by cementing in the size 4 [place] chrome femur, followed by cementing in the 32 mm all plastic patella. The implant surfaces were compressed, excess cement was removed, and after the cement had set, there was excellent motion stability, ligamentous balance and rotation alignment. Patellofemoral tracking were normal. No lateral release was required. The tourniquet was let down, hemostasis was obtained with a Bovie. The capsule was then closed with a running #2 Quill, the subq was closed in layers of running 0 Quill, the skin was closed with brock. The skin and subcutaneous tissue were infiltrated with 30 mL of 0.5% Marcaine with epinephrine prior, along with the periosteum and then after closure, I injected another gram of tranexamic acid mixed with 30 mL of saline, into the knee through a sterile 18 gauge needle and a sterile bulky compressive NIKHIL-type dressing was applied. The patient tolerated the procedure well. The needle and sponge counts were correct. Estimated blood loss was minimal. She was taken back to recovery in good condition. There were no complications. JOSE ALBERTO
[2018-05-19] MEDS: DOCUSATE SODIUM 100 MG CAPSULE PO SCH ×2 (09:24→21:19)
[2018-05-19] MEDS: FERROUS SULFATE 325 MG TAB PO SCH (09:24)
[2018-05-19] MEDS: PATIENT OWN MED: ASPIRIN 81 MG PO SCH (09:25)
[2018-05-19] MEDS: GABAPENTIN 100 MG PO SCH (09:25)
[2018-05-19] MEDS: PATIENT OWN MED: RANITIDINE 150 MG PO SCH ×2 (09:26→23:02)
[2018-05-19] MEDS: IPRATROPIUM 0.06% INH SCH (09:28)
[2018-05-19] MEDS: REFRESH EYE OPTH SCH (09:28)
[2018-05-19] MEDS: TRAMADOL HCL 50 MG TABLET PO PRN (11:26)
--- NOTE | 2018-05-19 13:50 | Physical Therapy Tx Note ---
Physical Therapy Tx Note - Treatment Note Tolerated: Good Total Time Spent With Patient: 35 Physical Therapy Tx Note: Detail (Patient states 4/10 pain in left knee. Patient was supine in bed upon [employer] arrival. Patient transferred supine to sit independently. Patient doffed socks with assistance, donned shoes independently. Patient transferred sit to and from stand CGA x1. Patient ambulated 30 feet with wheeled walker CGA x1. Patient performed the following exercises seated in chair x10 reps each: toe raises, heel raises, marching, LAQ , hamstring set, glut squeezes, heel slides, and quad sets. Patient transferred sit to and from stand SBA x1. Patient doffed shoes independently. Patient donned socks with assistance. Patient transferred sit to and from stand SBA x1. Patient ambulated 13 feet with wheeled walker SBA x1. Patient tolerated treatment well. Patient displays decreased strength and endurance with hamstring sets, seated marching, LAQ, and quad sets. Patient required cueing to move left LE out when performing stand to sit transfers. Patient was left seated on toilet with pull cord within reach.) Physical Therapy Problem List: Detail (1) Decreased L knee AROM 2) Decreased L LE strength) Physical Therapy Goals: 1) The patient will ambulate with appropriate assistive device community distances WBAT on the L LE, independently. (Goal partially met- Household distances). 2) The patient will ambulate on stairs with supervision for safety. 3) The patient will be independent with TKA HEP.(Goal Met) Prognosis: Good Physical Therapy Plan: Continue PT 1-2 times a day for gait training on levels and stairs, LE ROM exercises and exercises to improve patient's gait pattern.
[2018-05-19] MEDS ORDERED: TRANEXAMIC ACID 1,000 MG/10 ML ML IV ONE (16:02)
[2018-05-19] MEDS ORDERED: 0.9 % SODIUM CHLORIDE 10 ML VIAL IVP ONE (16:02)
[2018-05-19] MEDS: RIVAROXABAN 10 MG TABLET PO SCH (16:15)
[2018-05-19] MEDS: PATIENT OWN MED: CLOPIDOGREL 75 MG PO SCH (21:20)
[2018-05-19] MEDS: PATIENT OWN MED: AZATHIOPRINE 50 MG PO SCH (21:20)
[2018-05-19] MEDS: DIPHENHYDRAMINE 25 MG PO SCH (21:21)
[2018-05-19] MEDS: PINDOLOL 5 MG PO SCH (23:02)
[2018-05-20] MEDS: ACETAMINOPHEN W/ CODEINE 300MG/60MG TABLET PO PRN (09:00)
--- NOTE | 2018-05-21 13:07 | Operative Note ---
DATE OF ADMISSION: 05/17/18 DATE OF DISCHARGE: 05/20/18 DATE OF SURGERY: 05/17/18 HISTORY: Luisa is a delightful 82-year-old female who presents with end- stage arthrosis of her left knee. She was admitted after left total knee arthroplasty. Postoperatively, she did well. Her discharge hemoglobin was 8.8 and she did not require transfusion. DISCHARGE INSTRUCTIONS: The plan is for her to transfer to a swing bed. She will be given Tylenol #4 for pain. She should maintain for two additional days on Xarelto for DVT prophylaxis. Her dose of Xarelto should be on the and then starting Wednesday the , she should take a regular Aspirin daily for 30 days. Her sutures should be removed either by the nurse at the swing bed or by the visiting nurse on the . She does have a vacuum NIKHIL dressing and that should remain on her for seven days. On the , the dressing and the pump can be removed. The dressing is waterproof and it's okay for her to shower but she should have no bath, swimming, or hot tub until I see her back in the office in a month. She should follow-up in my office in a month. Again, sutures removed on the and continue the Aspirin at the last dose of Xarelto on the . Regular Aspirin daily for 30 days. FINAL DIAGNOSIS/PRIMARY DIAGNOSIS: END-STAGE ARTHROSIS OF THE LEFT KNEE. SECONDARY DIAGNOSES: CHRONIC ANEMIA WITH OPERATIVE BLOOD LOSS ANEMIA. OPERATIONS AND PROCEDURES: CEMENTED LEFT TOTAL KNEE ARTHROPLASTY. DISCHARGE CONDITION: GOOD. JOB NUMBER: [id number] MTDD
== END 2018-05-20 08:20 | DRG 470 ==
LOC: SUR 05-17 06:49 → MEDSURG 05-17 06:49 → SUR 05-17 11:51 → MEDSURG 05-17 11:51 → EDSTATUS 05-17 13:00
PROVIDERS: ADMIT Orthopaedic Surgery; ATTEND Orthopaedic Surgery
PROC: 0SRD069 Replacement of Left Knee Joint with Oxidized Zirconium on Polyethylene Synthetic Substitute, Cemented, Open Approach (ICD-10-PCS; principal; 2018-05-17 09:00)
DX: M17.12 Unilateral primary osteoarthritis, left knee (principal); G45.9 Transient cerebral ischemic attack, unspecified; I10 Essential (primary) hypertension; D64.9 Anemia, unspecified; M06.9 Rheumatoid arthritis, unspecified; N18.9 Chronic kidney disease, unspecified; M35.00 Sjogren syndrome, unspecified; G47.33 Obstructive sleep apnea (adult) (pediatric)
CPT/HCPCS: 71046; 76942; 80048; 85014; 85018; 86850; 86900; 86901; 94760; 94761; 97110; 97530; C1776; J2405; J3480; J7060

== ENCOUNTER 2018-05-20 08:38 | Inpatient (IN) | payer MEDICARE, BC ==
[2018-05-20] MEDS ORDERED: ACETAMINOPHEN W/ CODEINE 300MG/60MG TABLET PO PRN (09:20)
[2018-05-20] MEDS ORDERED: ACETAMINOPHEN 325 MG TAB PO PRN (09:21)
[2018-05-20] MEDS ORDERED: TRAMADOL HCL 50 MG TABLET PO PRN (09:22)
[2018-05-20] MEDS: FERROUS SULFATE 325 MG TAB PO SCH (10:08)
[2018-05-20] MEDS: DOCUSATE SODIUM 100 MG CAPSULE PO SCH ×2 (10:09→21:26)
[2018-05-20] MEDS: MAGNESIUM HYDROXIDE 30 ML UDC PO PRN (10:12)
[2018-05-20] MEDS: PATIENT OWN MED: ASPIRIN 81 MG PO SCH (10:16)
[2018-05-20] MEDS: GABAPENTIN 100 MG PO SCH (10:16)
[2018-05-20] MEDS: IPRATROPIUM 0.06% INH SCH (10:17)
[2018-05-20] MEDS: PATIENT OWN MED: RANITIDINE 150 MG PO SCH ×2 (10:17→21:30)
[2018-05-20] MEDS: REFRESH EYE OPTH SCH (10:18)
--- NOTE | 2018-05-20 11:48 | History & Physical ---
History of Present Illness - Date Date of Service for History & Physical: 05/20/18 - History of Present Illness Admitting Diagnosis: needs for several rehab services due to fall. S/P left TKA History of Present Illness: Luisa Zheng is an 82 y/o female admitted to the swing bed program today for continued therapy services s/p left TKA by Dr. Ochoa 05/17/18 for primary osteoarthritis. She has past medical history of HTN, TIA, CKD-3, Sjogren's syndrome, chronic anemia on long-term Procrit therapy, former smoker, s/p right TKA 10/2017, aortic insufficiency, hyperlipidemia, RA, lupus. She did see her ribbon lapper tender out fo [facility] in September 2017 and was given clearance for right then left knee TKA. EKG 04/28/17 showed RBBB, stress test 10/08/16 negative. Patient lives alone, drives, and manages own daily affairs and plans to return to independent living after swing bed admission. Chart review shows an uneventful surgical course, pre op Hgb 9.9, BUN 18, Cr 0.9 , GFR >60. Post op labs 05/19/17 Hgb 8.8, BUN 11, Cr 0.7. She is due for her next Procrit injection 05/22/18. She is using Tylenol #4 and Ultram for pain control. She uses 2 tabs Tylenol#4 and alternates with Ultram 100mg Q 6 hrs. Patient reports she is pain-free when using these medications but does feel drowsy with use. Nursing has noticed she has been sleeping more in the past 2 days. Has not moved bowels since surgery so MOM was given. She is managing stools with Colace 100mg BID. 05/20/18: Patient is resting comfortably in bed, is drowsy but easily arousable. She was medicated for pain about an hour prior to my visit. She reports is pain- free at this time. Is working with PT/OT and gaining strength. No new nursing concerns at this time. She did receive MOM this am for no BM since surgery . Will plan to decrease the amount of Tylenol #4 and Ultram she is getting to help improve drowsiness and constipation. General - Customary Routine Typical Morning Leisure Routine: sleeps in Typical Afternoon Leisure Routine: watches the young and the restless and bold& beautiful-watched since they began Typical Evening Leisure Routine: likes to cook-shares meals with Ab, cooks. Ab for about 5 years. stays up until about 1130/12 - Cognitive Patterns Orientation: Oriented x3 Brief Interview for Mental Status Score: 15 - Communication Preferred Language?: Mongolian Life Sciences Manager Required: No Level of Education: High School, College Preferred Method of Learning: Seeing, Doing Comprehension Ability: No Impairment Able to Read: Yes Able to Write: Yes Select best description of speech pattern: Clear Speech Ability to express ideas and wants: Understood Understanding verbal content: Understands - Patient Health Questionnaire (PHQ-9) Little interest or pleasure in doing things frequency: Never or 1 day Feeling down, depressed, or hopeless frequency: Never or 1 day Feeling tired or having little energy frequency: 2-6 days Poor appetite or overeating frequency: Never or 1 day Feeling bad about yourself frequency: Never or 1 day Trouble concentrating on things frequency: 7-11 days Moving/Speaking slowly or fidgety/restless frequency: Never or 1 day Thoughts that you would be better off frequency: Never or 1 day - Psychosocial Well-Being Usual Living Arrangement: Alone Relationship Status: / Current and Past Employment History: 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 likes reading:leslie simmons-has book on her ipad. has prayer book - Physical Functioning Assistive Devices: 2 Wheel Walker - Dental Status Unable to examine: No Broken or loosely fitting full or partial dentures: No No natural teeth or tooth fragment(s) (edentulous): No Abnormal mouth tissue (ulcers, masses, oral lesions, etc.): No Obvious or likely cavity or broken natural teeth: No Inflamed or bleeding gums or loose natural teeth: No Mouth/facial pain, discomfort or difficulty chewing: No - Nutrition Screening Poor oral intake > 1 week: Yes Unplanned weight loss in specified time frame: Yes Nutrition Support via tube feedings or parenteral nutrition: No Pressure Ulcer: No Significantly underweight define as BMI <18.5 kg/m2: No Albumin <2.5mg/dL: No Persistent nausea/vomiting/diarrhea >3 days: No Difficulty chewing/swallowing/mouth sores: No Admitting Diagnosis: No Nutrition Risk Score: High Risk Review of Systems Reviewed: No additional complaints except as noted below Constitutional: Reports: As per HPI. Denies: Chills, Fever, Malaise, Night sweats, Weakness, Weight change Eyes: Reports: As per HPI. Denies: Eye discharge, Eye pain, Photophobia, Vision change ENT: Reports: As per HPI. Denies: Congestion, Dental pain, Ear pain, Epistaxis , Hearing loss, Throat pain Respiratory: Reports: As per HPI. Denies: Cough, Dyspnea, Hemoptysis, Stridor, Wheezes Cardiovascular: Reports: As per HPI. Denies: Arrhythmia, Chest pain, Dyspnea on exertion, Edema, Murmurs, Orthopnea, Palpitations, Paroxysmal nocturnal dyspnea, Rheumatic Fever, Syncope Endocrine: Reports: As per HPI. Denies: Fatigue, Heat or cold intolerance, Polydipsia, Polyuria Gastrointestinal: Reports: As per HPI, Constipation. Denies: Abdominal pain, Diarrhea, Hematemesis, Hematochezia, Melena, Nausea, Vomiting Genitourinary: Reports: As per HPI. Denies: Abnormal menses, Discharge, Dyspareunia, Dysuria, Frequency, Hematuria, Incontinence, Retention, Urgency Musculoskeletal: Reports: As per HPI. Denies: Arthralgia, Back pain, Gout, Joint swelling, Myalgia, Neck pain Skin: Reports: As per HPI. Denies: Bruising, Change in color, Change in hair/ nails, Lesions, Pruritus, Rash Neurological: Reports: As per HPI. Denies: Abnormal gait, Confusion, Headache, Numbness, Paresthesias, Seizure, Tingling, Tremors, Vertigo, Weakness Psychiatric: Reports: As per HPI. Denies: Anxiety, Auditory hallucinations, Depression, Homicidal thoughts, Suicidal thoughts, Visual hallucinations Hematological/Lymphatic: Reports: As per HPI. Denies: Anemia, Blood Clots, Easy bleeding, Easy bruising, Swollen glands Past Medical History - SOCIAL HISTORY Smoking Status: Former smoker - SURGICAL HISTORY Past Surgical History: RTKA 10-19-17. hyst. laparotomy. bilat cats. c scopes. 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 - Hx Genitourinary Disorders: Yes Hx Renal Disease: Yes (stage 3 renal failure) Comment:: PT STATES RENAL FAILURE LABS WNL - ENDOCRINE Hx Endocrine Disorders: No - MUSCULOSKELETAL Hx Musculoskeletal Disorders: Yes Hx Arthritis: Yes (LEFT KNEE) - PSYCH Hx Psych Problems: No - HEMATOLOGY/ONCOLOGY Hx Hematology/Oncology Disorders: Yes Hx Anemia: Yes (takes Procrit every 10 days) Hx Bruising: Yes (on Plavix) Hx Blood Transfusions: Yes Hx Blood Transfusion Reaction: No Comment:: body doesnt produce RBC's like it should x's 20 yrs Family Medical History Any Significant Family History?: Yes Family Hx Comment (NOT TO BE USED IN PLACE OF ITEMS BELOW): parents of old age H&P Meds/Allergies - Allergies Allergies: Allergies Allergy/AdvReac Type Severity Reaction Status Date / Time adhesive tape AdvReac SKIN Verified 10/13/17 10:27 IRRITATION Sulfa (Sulfonamide AdvReac NAUSEA AND Verified 10/13/17 10:08 Antibiotics) VOMITING - Active Medications Active Medications: Current Medications Acetaminophen (Tylenol 325mg) 650 mg PO Q4H PRN PRN Reason: PAIN - MILD (1-4) Acetaminophen/Codeine Phosphate (Acetaminophen-Cod #4 Tablet) 1 udtab PO Q4H PRN PRN Reason: PAIN - MODERATE (5-7) Aspirin (Ecotrin (Ec)) 325 mg PO DAILY [facility] Docusate Sodium (Colace) 100 mg PO BID [facility] Last Admin: 05/20/18 10:09 Dose: 100 mg Ferrous Sulfate (Iron) 325 mg PO DAILY [facility] Last Admin: 05/20/18 10:08 Dose: 325 mg Magnesium Hydroxide (Milk Of Magnesium) 30 ml PO DAILY PRN PRN Reason: INDIGESTION Last Admin: 05/20/18 10:12 Dose: 30 ml Patient Own Med: Diphenhydramine 25 Mg Tablets 2 each PO QHS [facility] Patient Own Med: (Aspirin 81 Mg) 1 each PO DAILY [facility] Stop: 05/22/18 10:01 Last Admin: 05/20/18 10:16 Dose: 1 each Patient Own Med: (Gabapentin 100 Mg) 1 each PO DAILY [facility] Last Admin: 05/20/18 10:16 Dose: 1 each Patient Own Med: (Azathioprine 50 Mg) 1 each PO QHS [facility] Patient Own Med: Ipratropium Nasal [place] 0.06% 2 each INH DAILY [facility] Last Admin: 05/20/18 10:17 Dose: Not Given Patient Own Med: (Refresh Eye Drops) 1 each OPTH DAILY [facility] Last Admin: 05/20/18 10:18 Dose: Not Given Patient Own Med: (Clopidogrel 75 Mg) 1 each PO QHS [facility] Patient Own Med: (Ranitidine 150 Mg) 1 each PO BID [facility] Last Admin: 05/20/18 10:17 Dose: 1 each Patient Own Med: (Pindolol 5 Mg) 0.5 each PO QHS [facility] Rivaroxaban (Xarelto) 10 mg PO Q24H [facility] Stop: 05/22/18 17:31 Tramadol HCl (Ultram) 50 mg PO Q6H PRN PRN Reason: PAIN - MOD TO SEVERE (5-10) Physical Exam - Vital Signs Vital Signs: Vital Signs - Last 24 Hrs Temp Pulse Resp BP BP Pulse Ox 05/20/18 10:46 99.4 F 126/61 05/20/18 09:30 99.4 F 64 18 126/61 94 L - General General Appearance: Alert, Oriented x3, Cooperative, Other (drowsy but easily arousable) Limitations: No limitations - Head Head exam: Atraumatic, Normocephalic - Eye Eye exam: Normal appearance, PERRL (pupils pinpoint) - ENT ENT exam: Normal exam, Mucous membranes dry (hx Sjogren's), Normal external ear exam, Normal orophraynx, TM's normal bilaterally - Neck Neck exam: Normal inspection, Full ROM - Respiratory Respiratory exam: Normal lung sounds bilaterally. negative: Respiratory distress - Cardiovascular Cardiovascular Exam: Regular rate, Normal rhythm, Normal heart sounds Peripheral Pulses: 2+: Dorsalis Pedis (R), Dorsalis Pedis (L) - GI/Abdominal GI/Abdominal exam: Soft, Normal bowel sounds. negative: Distended - Extremities Extremities exam: Normal inspection, Joint swelling (left knee surgical site), Normal capillary refill, Pedal edema (trace L foot pedal edema ). negative: Calf tenderness - Back Back exam: Reports: Normal inspection - Neurological Neurological exam: Alert, Normal gait, Oriented X3, Reflexes normal - Psychiatric Psychiatric exam: Normal affect, Normal mood - Skin Skin exam: Other (NIKHIL dressing in place left knee. Less than 25% of dressing with sanguinous discharge) Discharge Potential - Discharge Needs Community Services Used Prior to Admission: None Patient Discharge Plan Description: Return Home Community Services Needed at Discharge: None Plan - Swing Bed Certification Initial Certification Due: 05/20/18 14 Day Re-Cert Due: 06/03/18 44 Day Re-Cert Due: 07/03/18 74 Day Re-Cert Due: 08/02/18 - Detailed Diagnosis and Plan (1) Physical deconditioning Current Visit: Yes Status: Acute Base Code: R53.81 - OTHER MALAISE Comment : 05/20/18 - PT/OT - Pain control with Tylenol #4 1 tab only Q 6 hrs PRN and Ultram 50mg Q 6hr PRN - (2) Status post total left knee replacement Current Visit: Yes Status: Acute Base Code: Z96.652 - PRESENCE OF LEFT ARTIFICIAL KNEE JOINT Comment: 05/20/18 - left knee NIKHIL dressing per protocol (3) Chronic anemia Current Visit: Yes Status: Acute Base Code: D64.9 - ANEMIA, UNSPECIFIED Comment: 05/20/18 - Procrit due 05/22/18, will use home dose - Hgb 8.8 05/19, pre op Hgb 9.9 - Recheck 1 week after discharge (4) CKD (chronic kidney disease) stage 3, GFR 30-59 ml/min Current Visit: Yes Status: Acute Base Code: N18.3 - CHRONIC KIDNEY DISEASE, STAGE 3 (MODERATE) Comment: 05/20/18 - pre op BUN/Cr 18/0.9--> 11/0.7 post op 05/19/18 (5) Full code status Current Visit: Yes Status: Acute Base Code: Z78.9 - OTHER SPECIFIED HEALTH STATUS Comment: 05/20/18 (6) DVT prophylaxis Current Visit: Yes Status: Acute Base Code: [id number] - Comment: 05/20/18 - Continue post op VTE prophylaxis with Xarelto 10mg QD
--- NOTE | 2018-05-20 12:54 | Rehab Evaluation ---
Patient Information - Patient Information Diagnosis: s/p left TKA Ordered Treatment: OT Evaluate and Treat Status: Initial Evaluation Surgery: Yes (left TKA) Date of Surgery: 05/17/18 Past Medical/Surgical Hx: PAST MEDICAL/SURGICAL HISTORY Past Surgical History RTKA 10-19-17 hyst laparotomy bilat cats c scopes EGD with Dilitation PMH - Respiratory Hx Respiratory Disorders Yes Hx Bronchitis Yes Hx Pneumonia Yes Hx Sleep Apnea Yes Hx of CPAP No Hx of SOB Yes: once in a while PMH - Cardiovascular Hx Cardiovascular Disorders Yes Hx Abnormal EKG Yes Hx Edema Yes: minimally at night at times Hx Hypertension Yes: on meds good control runs low most of the time Hx Irregular Heartbeat Yes: PVC's and PAC's sometimes Hx Palpitations Yes Hx Vascular Disease Yes: has leaky aortic valve Hx Transient Ischemic Attacks Yes: yrs ago no residual on Plavix (TIA) Comment: r/t knee and back PMH - Neuro Hx Neurological Disorders Yes Hx Dizziness Yes Hx Headaches Yes: occassionally Hx Neuropathy Yes Hx Seizures No Hx Transient Ischemic Attacks Yes: yrs ago no residual on Plavix (TIA) PMH - GI Hx Gastrointestinal Disorders Yes Hx Gastroesophageal Reflux Yes Hx Weight Loss/Weight Gain Yes: losing weight 10 lbs recently 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 PMH - Hx Genitourinary Disorders Yes Hx Renal Disease Yes: stage 3 renal failure Comment: PT STATES RENAL FAILURE LABS WNL PMH - Endocrine Hx Endocrine Disorders No PMH - Musculoskeletal Hx Musculoskeletal Disorders Yes Hx Arthritis Yes: LEFT KNEE Comment: TLKA on 05/17/18 PMH - Psych Hx Psychiatric Problems No PMH - Hematology/Oncology Hx Hematology/Oncology Yes Disorders Hx Anemia Yes: takes Procrit every 10 days Hx Bruising Yes: on Plavix Hx Blood Transfusion Reaction No Comment: body doesnt produce RBC's like it should x's 20 yrs Premorbid Status: Detail (Pt lives alone in a 1 story house with basement, she stays on the first floor. She has 2 steps, no railing at the entrance. She has a walk in shower with a seat and grab bars as well as a standard height toilet with grab bars. She has a international trade manager who comes every 2 weeks and she is Ind with laundry and meal prep.) Precautions: [place], Fall, Other (WBAT left LE) - Time With Patient Total Time Spent With Patient (Min): 60 Treatment Procedures: Detail (OT eval low complexity) Subjective Information - Subjective Information Per Patient Objective Data - Pain Pain Present: Yes (0/10 at rest) - Mental Status Patient Orientation: Oriented x3 - Visual Perception Appears within normal limits for therapeutic activities (Pt wears glasses.) - ROM Within normal limits (Manuel UE AROM WNL) - Strength/Tone Within normal limits (Manuel UE strength 4/5) - Coordination Appears within normal limits for therapeutic activities - Bed Mobility Independent (Ind with supine to sit and sit to supine.) - Transfers Independent (Ind with sit to stand from EOB and chair heights.) - Balance Balance Sitting: Good Balance Standing: Good - Sensation Intact - Gait Detail (Pt ambulating in room with 2 wheeled walker Indly.) - ADL's/IADL's Detail (Pt able to complete doffing of shirt, pants, underwear and slipper socks with verbal cues for modified technique. Pt amb to sink and completed sponge bathing in sitting and standing Indly. Pt donned bra, shirt, underwear and pants with modified techniques. Pt completed oral hygiene Indly. Pt amb back to EOB with 2 wheeled walker Indly. She donned right slipper sock Indly, she reported neck soreness due to bending. Sit to supine Indly and pt able to don left slipper sock with modified technique while long sitting in bed.) Therapy Assessment - Therapy Assessment Detail (Pt is Ind with total body dressing using modified technique. Pt is easily fatigued with activity.) Problem List - Problem List Occupational Therapy Problem List: Detail (1. Need to further assess Ind and safety with showering. 2. Need to further assess IADL tasks.) Goals - Goals Occupational Therapy Goals: 1. Pt will be Ind with showering in sitting. 2. Pt will be Ind with kitchen activity using walker and modified techniques. Prognosis - Prognosis Good Plan - Plan Occupational Therapy Plan: OT 1-2 additional visits to assess showering and IADLs.
[2018-05-20] MEDS: TRAMADOL HCL 50 MG TABLET PO PRN (13:50)
--- NOTE | 2018-05-20 15:04 | Rehab Evaluation ---
Patient Information - Patient Information Diagnosis: s/p left TKA Ordered Treatment: PT Evaluate and Treat Status: Initial Evaluation Surgery: Yes (left TKA) Date of Surgery: 05/17/18 Past Medical/Surgical Hx: PAST MEDICAL/SURGICAL HISTORY Past Surgical History RTKA 10-19-17 hyst laparotomy bilat cats c scopes EGD with Dilitation PMH - Respiratory Hx Respiratory Disorders Yes Hx Bronchitis Yes Hx Pneumonia Yes Hx Sleep Apnea Yes Hx of CPAP No Hx of SOB Yes: once in a while PMH - Cardiovascular Hx Cardiovascular Disorders Yes Hx Abnormal EKG Yes Hx Edema Yes: minimally at night at times Hx Hypertension Yes: on meds good control runs low most of the time Hx Irregular Heartbeat Yes: PVC's and PAC's sometimes Hx Palpitations Yes Hx Vascular Disease Yes: has leaky aortic valve Hx Transient Ischemic Attacks Yes: yrs ago no residual on Plavix (TIA) Comment: r/t knee and back PMH - Neuro Hx Neurological Disorders Yes Hx Dizziness Yes Hx Headaches Yes: occassionally Hx Neuropathy Yes Hx Seizures No Hx Transient Ischemic Attacks Yes: yrs ago no residual on Plavix (TIA) PMH - GI Hx Gastrointestinal Disorders Yes Hx Gastroesophageal Reflux Yes Hx Weight Loss/Weight Gain Yes: losing weight 10 lbs recently 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 PMH - Hx Genitourinary Disorders Yes Hx Renal Disease Yes: stage 3 renal failure Comment: PT STATES RENAL FAILURE LABS WNL PMH - Endocrine Hx Endocrine Disorders No PMH - Musculoskeletal Hx Musculoskeletal Disorders Yes Hx Arthritis Yes: LEFT KNEE Comment: TLKA on 05/17/18 PMH - Psych Hx Psychiatric Problems No PMH - Hematology/Oncology Hx Hematology/Oncology Yes Disorders Hx Anemia Yes: takes Procrit every 10 days Hx Bruising Yes: on Plavix Hx Blood Transfusion Reaction No Comment: body doesnt produce RBC's like it should x's 20 yrs Premorbid Status: Detail (Pt lives alone in a 1 story house with basement, she stays on the first floor. She has 2 steps, no railing at the entrance. She has a walk in shower with a seat and grab bars as well as a standard height toilet with grab bars. She has a hospitality housekeeper who comes every 2 weeks and she is Ind with laundry and meal prep.) Precautions: [place], Fall, Other (WBAT left LE) - Time With Patient Total Time Spent With Patient (Min): 30 Treatment Procedures: Detail (Initial Evaluation, gait training) Subjective Information - Subjective Information Per Patient (The patient had complaints of L knee pain after PT eval but did not rate her pain using 0-10 pain scale.) Objective Data - Mental Status Patient Orientation: Oriented x3 - Visual Perception Appears within normal limits for therapeutic activities - ROM Not within normal limits (The patient's L knee AROM was flexion 85 degrees of flexion, extension -8 degrees. All other LE AROM was WNL.) - Strength/Tone Not within normal limits (The patient's R LE strength was generally 4+ to 5/5. L LE strength is quads 3-/5, hamstring 4-/5, ankle musculature 4+/5, hip musculature 4/5.) - Bed Mobility Independent (The patient was independent with supine to and from sit transfer.) - Transfers Independent (The patient was independent with sit to and from stand transfer and toilet transfer.) - Balance Balance Sitting: Good Balance Standing: Good - Sensation Intact - Gait Detail (The patient ambulated with front wheeled walker a distance of 75 feet x 1 WBAT on the L LE with supervision for safety only. The patient declined ambulation on stairs.) Therapy Assessment - Therapy Assessment Detail (The patient is progressing well with mobility. The patient demonstrates decreased L knee AROM and strength as to be expected following surgery. Feel the patient will benefit from short term subacute rehab for gait training and stairs and progressing LE strengthening exercises and gait training community distances.) Patient Education - Patient Education Teaching Topic: Exercise/Activity (The patient completed the following exercises : quad sets, SLR, SAQ, gluteal sets and hamstrings all 5 -10 reps.) Response: Return Demonstration Teaching Method: Demonstration, Handout Teaching Recipient: Patient Barriers To Learning: Age Related Problem List - Problem List Physical Therapy Problem List: Detail (1) Non ambulatory on stairs 2) Decreased ambulation distance 3) Decreased L knee AROM and strength) Occupational Therapy Problem List: Detail (1. Need to further assess Ind and safety with showering. 2. Need to further assess IADL tasks.) Goals - Goals Physical Therapy Goals: 1) The patient will ambulate distances of 100 feet plus independently WBAT on th L LE with appropriate assistive device. 2) The patient will ambulate on stairs with supervision using proper technique. 3) The patient will be independent with TKA HEP progression. Occupational Therapy Goals: 1. Pt will be Ind with showering in sitting. 2. Pt will be Ind with kitchen activity using walker and modified techniques. Prognosis - Prognosis Good Plan - Plan Physical Therapy Plan: PT 1-2 times a day M-F for gait training on levels and stairs and TKA exercise program. Occupational Therapy Plan: OT 1-2 additional visits to assess showering and IADLs.
[2018-05-20] MEDS: ACETAMINOPHEN W/ CODEINE 300MG/60MG TABLET PO PRN (21:25)
[2018-05-20] MEDS: PATIENT OWN MED: CLOPIDOGREL 75 MG PO SCH (21:27)
[2018-05-20] MEDS: PATIENT OWN MED: AZATHIOPRINE 50 MG PO SCH (21:27)
[2018-05-20] MEDS: DIPHENHYDRAMINE 25 MG PO SCH (21:28)
[2018-05-20] MEDS: PINDOLOL 5 MG PO SCH (21:29)
[2018-05-20] MEDS: RIVAROXABAN 10 MG TABLET PO SCH (22:54)
[2018-05-21] MEDS: ACETAMINOPHEN W/ CODEINE 300MG/60MG TABLET PO PRN ×3 (06:29→19:18)
[2018-05-21] MEDS: DOCUSATE SODIUM 100 MG CAPSULE PO SCH ×2 (09:54→21:53)
[2018-05-21] MEDS: FERROUS SULFATE 325 MG TAB PO SCH (09:54)
[2018-05-21] MEDS: PATIENT OWN MED: ASPIRIN 81 MG PO SCH (09:56)
[2018-05-21] MEDS: GABAPENTIN 100 MG PO SCH (09:57)
[2018-05-21] MEDS: IPRATROPIUM 0.06% INH SCH (09:59)
[2018-05-21] MEDS: REFRESH EYE OPTH SCH (10:00)
[2018-05-21] MEDS: PATIENT OWN MED: RANITIDINE 150 MG PO SCH ×2 (10:00→21:59)
[2018-05-21] MEDS: MAGNESIUM HYDROXIDE 30 ML UDC PO PRN (13:22)
[2018-05-21] MEDS: RIVAROXABAN 10 MG TABLET PO SCH (17:16)
[2018-05-21] MEDS: PATIENT OWN MED: AZATHIOPRINE 50 MG PO SCH (21:52)
[2018-05-21] MEDS: DIPHENHYDRAMINE 25 MG PO SCH (21:57)
[2018-05-21] MEDS: PATIENT OWN MED: CLOPIDOGREL 75 MG PO SCH (21:57)
[2018-05-21] MEDS: PINDOLOL 5 MG PO SCH (21:58)
[2018-05-22] MEDS: ACETAMINOPHEN W/ CODEINE 300MG/60MG TABLET PO PRN ×2 (04:40→21:28)
[2018-05-22] MEDS: FERROUS SULFATE 325 MG TAB PO SCH (09:40)
[2018-05-22] MEDS: DOCUSATE SODIUM 100 MG CAPSULE PO SCH ×2 (09:40→21:56)
[2018-05-22] MEDS: PATIENT OWN MED: ASPIRIN 81 MG PO SCH (09:41)
[2018-05-22] MEDS: GABAPENTIN 100 MG PO SCH (09:41)
[2018-05-22] MEDS: REFRESH EYE OPTH SCH (09:42)
[2018-05-22] MEDS: IPRATROPIUM 0.06% INH SCH (09:42)
[2018-05-22] MEDS: PATIENT OWN MED: RANITIDINE 150 MG PO SCH ×2 (09:42→21:53)
[2018-05-22] MEDS: TRAMADOL HCL 50 MG TABLET PO PRN (10:56)
[2018-05-22] MEDS: RIVAROXABAN 10 MG TABLET PO SCH (16:59)
[2018-05-22] MEDS: DIPHENHYDRAMINE 25 MG PO SCH (21:52)
[2018-05-22] MEDS: PATIENT OWN MED: CLOPIDOGREL 75 MG PO SCH (21:52)
[2018-05-22] MEDS: PINDOLOL 5 MG PO SCH (21:52)
[2018-05-22] MEDS: PATIENT OWN MED: AZATHIOPRINE 50 MG PO SCH (21:52)
[2018-05-23] MEDS: TRAMADOL HCL 50 MG TABLET PO PRN (00:31)
[2018-05-23] MEDS: ACETAMINOPHEN W/ CODEINE 300MG/60MG TABLET PO PRN ×4 (04:21→23:15)
[2018-05-23] MEDS: ASPIRIN 325 MG TAB ENTERIC-COATED PO SCH (10:13)
[2018-05-23] MEDS: FERROUS SULFATE 325 MG TAB PO SCH (10:13)
[2018-05-23] MEDS: DOCUSATE SODIUM 100 MG CAPSULE PO SCH ×2 (10:13→21:14)
[2018-05-23] MEDS: GABAPENTIN 100 MG PO SCH (10:15)
[2018-05-23] MEDS: PATIENT OWN MED: RANITIDINE 150 MG PO SCH ×2 (10:15→21:16)
[2018-05-23] MEDS: REFRESH EYE OPTH SCH (10:16)
--- NOTE | 2018-05-23 10:29 | Occupational Therapy Tx Note ---
Occupational Therapy Tx Note - Treatment Note Tolerated: Good Total Time Spent With Patient: 35 (ADL) Occupational Therapy Treatment Note: Detail (S: Pt resting in bed, ready for shower. O: Supine to sit Indly, amb to toilet with 2 wheeled walker Indly. Pt completed toileting Indly with use of grab bar for sit to stand. Pt doffed shirt, bra, pants, underwear and slipper socks Indly. Pt amb to shower and completed total body showering in sitting and standing with use of grab bar. Pt dried self Indly and amb to EOB with 2 wheeled walker Indly. Pt completed total body dressing with min verbal cues for modified LE dressing technique. A : Pt is Ind with showering in sitting and standing, Ind with total body dressing using modified techniques) Occupational Therapy Problem List: Detail (1. Need to further assess Ind and safety with showering. 2. Need to further assess IADL tasks.) Occupational Therapy Goals: 1. Pt will be Ind with showering in sitting. 2. Pt will be Ind with kitchen activity using walker and modified techniques. Prognosis: Good Occupational Therapy Plan: OT 1-2 additional visits to assess showering and IADLs.
--- NOTE | 2018-05-23 12:47 | Discharge Summary ---
<ELIZABETH GONZALEZ - Last Filed: 05/23/18 12:41> Providers Discharge Summary Date: 05/24/18 Date of admission: 05/20/18 08:38 Attending physician: PABLO JENSEN Primary care physician: LORETA BORDEN D.O. Physical Exam - Vital Signs Vital Signs: Vital Signs - Last 24 Hrs Temp Pulse Resp BP BP Pulse Ox 05/23/18 09:43 97.7 F 105/40 05/23/18 08:00 97.7 F 63 16 105/40 95 05/22/18 20:00 98.1 F 61 18 141/42 94 L - General General Appearance: Alert, Oriented x3, Cooperative Limitations: No limitations - Head Head exam: Atraumatic, Normocephalic - Eye Eye exam: Normal appearance, PERRL (pupils pinpoint) - ENT ENT exam: Normal exam, Mucous membranes dry (hx Sjogren's), Normal external ear exam, Normal orophraynx, TM's normal bilaterally - Neck Neck exam: Normal inspection, Full ROM - Respiratory Respiratory exam: Normal lung sounds bilaterally. negative: Respiratory distress - Cardiovascular Cardiovascular Exam: Regular rate, Normal rhythm, Normal heart sounds Peripheral Pulses: 2+: Dorsalis Pedis (R), Dorsalis Pedis (L) - GI/Abdominal GI/Abdominal exam: Soft, Normal bowel sounds. negative: Distended - Extremities Extremities exam: Normal inspection, Joint swelling (left knee surgical site), Normal capillary refill, Pedal edema (trace L foot pedal edema ). negative: Calf tenderness - Back Back exam: Reports: Normal inspection - Neurological Neurological exam: Alert, Normal gait, Oriented X3, Reflexes normal - Psychiatric Psychiatric exam: Normal affect, Normal mood - Skin Skin exam: Other (NIKHIL dressing in place left knee. Less than 25% of dressing with sanguinous discharge) Hospitalization - Hospitalization Admission Diagnosis: needs for several rehab services due to fall. S/P left TKA - Problem List (1) Physical deconditioning Current Visit: Yes Status: Acute Base Code: R53.81 - OTHER MALAISE Comment : 05/23/18 - PT/OT- goals met - Pain controlled with Tylenol #4 1 tab only Q 6 hrs PRN and Ultram 50mg Q 6hr PRN (2) Status post total left knee replacement Current Visit: Yes Status: Acute Base Code: Z96.652 - PRESENCE OF LEFT ARTIFICIAL KNEE JOINT Comment: 05/23/18 - left knee NIKHIL dressing per protocol, remove in am (3) Chronic anemia Current Visit: Yes Status: Acute Base Code: D64.9 - ANEMIA, UNSPECIFIED Comment: 05/23/18 - Procrit due 05/22/18, will use home dose and continue weekly as prescribed - Hgb 8.8 05/19, pre op Hgb 9.9 - Recheck 1 week after discharge (4) CKD (chronic kidney disease) stage 3, GFR 30-59 ml/min Current Visit: Yes Status: Acute Base Code: N18.3 - CHRONIC KIDNEY DISEASE, STAGE 3 (MODERATE) Comment: 05/23/18 - pre op BUN/Cr 18/0.9--> 11/0.7 post op 05/19/18 (5) Full code status Current Visit: Yes Status: Acute Base Code: Z78.9 - OTHER SPECIFIED HEALTH STATUS Comment: 05/23/18 (6) DVT prophylaxis Current Visit: Yes Status: Acute Base Code: [id number] - Comment: 05/23/18 - Post op VTE prophylaxis with Xarelto 10mg QD until 05/22/18 - Begin ASA 325mg PO QD beginning 05/23/18, DC 81mg - Hospitalization Course Disposition: Home Health Service Reason For Discharge/Transfer: Medical Stability Hospital Course: Luisa Zheng is an 82 y/o female admitted to the swing bed program today for continued therapy services s/p left TKA by Dr. Ochoa 05/17/18 for primary osteoarthritis. She has past medical history of HTN, TIA, CKD-3, Sjogren's syndrome, chronic anemia on long-term Procrit therapy, former smoker, s/p right TKA 10/2017, aortic insufficiency, hyperlipidemia, RA, lupus. She did see her health care facilities inspector out fo [facility] in September 2017 and was given clearance for right then left knee TKA. EKG 04/28/17 showed RBBB, stress test 10/08/16 negative. Patient lives alone, drives, and manages own daily affairs and plans to return to independent living after swing bed admission. Chart review shows an uneventful surgical course, pre op Hgb 9.9, BUN 18, Cr 0.9 , GFR >60. Post op labs 05/19/17 Hgb 8.8, BUN 11, Cr 0.7. She is due for her next Procrit injection 05/22/18. She is using Tylenol #4 and Ultram for pain control. She uses 2 tabs Tylenol#4 and alternates with Ultram 100mg Q 6 hrs. Patient reports she is pain-free when using these medications but does feel drowsy with use. Nursing has noticed she has been sleeping more in the past 2 days. Has not moved bowels since surgery so MOM was given. She is managing stools with Colace 100mg BID. 05/20/18: Patient is resting comfortably in bed, is drowsy but easily arousable. She was medicated for pain about an hour prior to my visit. She reports is pain- free at this time. Is working with PT/OT and gaining strength. No new nursing concerns at this time. She did receive MOM this am for no BM since surgery . Will plan to decrease the amount of Tylenol #4 and Ultram she is getting to help improve drowsiness and constipation. 05/23/18- Hospital course uneventful, worked with therapy and has met discharge goals. Did reduce pain medication regimen by half to help with constipation and drowsiness and tolerated well. Condition at Discharge: (1) Good Discharge Medications - Discharge Medications Prescriptions: Aspirin [Adult Aspirin Regimen] 81 mg PO DAILY #30 tablet. Docusate Sodium [Colace] 100 mg PO BID #60 cap Ferrous Sulfate [Iron] 325 mg PO DAILY #30 tablet Tramadol HCl [Ultram] 50 mg PO Q6H PRN #20 tablet PRN Reason: Pain - Mod To Severe (5-10) Home Medications: Ambulatory Orders Acetaminophen [Tylenol 325Mg] 650 mg PO Q4H PRN tablet 05/23/18 [Last Taken Unknown] Docusate Sodium [Colace] 100 mg PO BID #60 cap 05/23/18 [Last Taken Unknown] Ferrous Sulfate [Iron] 325 mg PO DAILY #30 tablet 05/23/18 [Last Taken Unknown] Tramadol HCl [Ultram] 50 mg PO Q6H PRN #20 tablet 05/23/18 [Last Taken Unknown] Aspirin [Adult Aspirin Regimen] 81 mg PO DAILY #30 tablet. 05/24/18 [Last Taken Unknown] Discharge Plan - Discharge Instructions Activity at Discharge: Increase Activity as Tolerated Diet at Discharge: Regular Diet Quality Measures - Quality Measures Quality Measures: Advance Directives, Documentation of Current Medications in Medical Record, Elder Maltreatment Screen and Follow-Up Plan, Screening for High Blood Pressure and F/U Documented - Current Medications Quality Measure: Measure #130: Documentation of Current Medications Documentation of Current Medications: <Current Medications Documented/Reviewed> [G8427] - Blood Pressure Screening Quality Measure: Screening for High Blood Pressure and Follow-Up Documented Does Patient Have Any of the Following: No Blood Pressure Classification: Normal BP Reading Systolic Measurement: 105 Diastolic Measurement: 40 Screening for High Blood Pressure: < Normal BP, F/U Not Required > [G8783] - Advance Directives Quality Measure: Measure #47: Care Plan Advance Directives Established: Yes Advance Directives Information Provided To Patient: Declined Advance Directives on File: No Living Will: Yes Power of Heddler: No - Elder Abuse Suspicion Index Screening: Elder Abuse Suspicion Index Screening Rely on people for bathing, dressing, shopping, banking, etc: No Prevented from getting food, clothes, medication, etc: No Made to feel shamed or threatened by someone: No Forced to sign papers or use money against will: No Feel afraid, touched in ways not wanted or hurt physically: No Poor eye contact, withdrawn, malnourished, cuts or bruises: No Screening Result: Negative result EASI Reference Information: Aidan TORRES, Gala C, Blanche D, Ayden Ponce.Development and validation of a tool to assist physicians identification of elder abuse: The Elder Abuse Suspicion Index (EASI ). Journal of Elder Abuse and Neglect, 2008; 20 (3): 276-300. - Elder Maltreatment Screen Quality Measures: Elder Maltreatment Screen and Follow-Up Plan Elder Maltreatment Screen: <Negative, No Follow-Up Plan Required> [G8734] <Cory Jorge - Last Filed: 05/24/18 07:50> Providers Date of admission: 05/20/18 08:38 Attending physician: PABLO JENSEN Primary care physician: LORETA BORDEN D.O. Physical Exam - Vital Signs Vital Signs: Vital Signs - Last 24 Hrs Temp Pulse Resp BP BP BP Pulse Ox 05/23/18 20:00 97.9 F 61 18 141/56 93 L 05/23/18 09:43 97.7 F 105/40 05/23/18 08:00 97.7 F 63 16 105/40 95 Quality Measures - Quality Measures Quality Measures: Advance Directives, Documentation of Current Medications in Medical Record, Elder Maltreatment Screen and Follow-Up Plan, Screening for High Blood Pressure and F/U Documented - Current Medications Quality Measure: Measure #130: Documentation of Current Medications Documentation of Current Medications: <Current Medications Documented/Reviewed> [G8481] - Blood Pressure Screening Quality Measure: Screening for High Blood Pressure and Follow-Up Documented Does Patient Have Any of the Following: Active Dx of HTN Blood Pressure Classification: Normal BP Reading Systolic Measurement: 105 Diastolic Measurement: 40 Screening for High Blood Pressure: Patient Exclusion, Hx of HTN [G9744] - Advance Directives Quality Measure: Measure #47: Care Plan Advance Care Planning: <Care Plan/Decision Maker Documented; Discussed & Documented> [1123R] - Elder Abuse Suspicion Index Screening: Elder Abuse Suspicion Index Screening Rely on people for bathing, dressing, shopping, banking, etc: No Prevented from getting food, clothes, medication, etc: No Made to feel shamed or threatened by someone: No Forced to sign papers or use money against will: No Feel afraid, touched in ways not wanted or hurt physically: No Poor eye contact, withdrawn, malnourished, cuts or bruises: No Screening Result: Negative result EASI Reference Information: Aidan TORRES, Gala C, Blanche D, Ayden Ponce.Development and validation of a tool to assist physicians identification of elder abuse: The Elder Abuse Suspicion Index (EASI ). Journal of Elder Abuse and Neglect, 2008; 20 (3): 276-300. - Elder Maltreatment Screen Quality Measures: Elder Maltreatment Screen and Follow-Up Plan Elder Maltreatment Screen: <Negative, No Follow-Up Plan Required> [G8734]
--- NOTE | 2018-05-23 16:17 | Rehab Discharge Summary ---
Patient Information - Patient Information Diagnosis: s/p left TKA Ordered Treatment: PT Evaluate and Treat Surgery: Yes (left TKA) Date of Surgery: 05/17/18 Past Medical/Surgical Hx: PAST MEDICAL/SURGICAL HISTORY Past Surgical History RTKA 10-19-17 hyst laparotomy bilat cats c scopes EGD with Dilitation PMH - Respiratory Hx Respiratory Disorders Yes Hx Bronchitis Yes Hx Pneumonia Yes Hx Sleep Apnea Yes Hx of CPAP No Hx of SOB Yes: once in a while PMH - Cardiovascular Hx Cardiovascular Disorders Yes Hx Abnormal EKG Yes Hx Edema Yes: minimally at night at times Hx Hypertension Yes: on meds good control runs low most of the time Hx Irregular Heartbeat Yes: PVC's and PAC's sometimes Hx Palpitations Yes Hx Vascular Disease Yes: has leaky aortic valve Hx Transient Ischemic Attacks Yes: yrs ago no residual on Plavix (TIA) Comment: r/t knee and back PMH - Neuro Hx Neurological Disorders Yes Hx Dizziness Yes Hx Headaches Yes: occassionally Hx Neuropathy Yes Hx Seizures No Hx Transient Ischemic Attacks Yes: yrs ago no residual on Plavix (TIA) PMH - GI Hx Gastrointestinal Disorders Yes Hx Gastroesophageal Reflux Yes Hx Weight Loss/Weight Gain Yes: losing weight 10 lbs recently 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 PMH - Hx Genitourinary Disorders Yes Hx Renal Disease Yes: stage 3 renal failure Comment: PT STATES RENAL FAILURE LABS WNL PMH - Endocrine Hx Endocrine Disorders No PMH - Musculoskeletal Hx Musculoskeletal Disorders Yes Hx Arthritis Yes: LEFT KNEE Comment: TLKA on 05/17/18 PMH - Psych Hx Psychiatric Problems No PMH - Hematology/Oncology Hx Hematology/Oncology Yes Disorders Hx Anemia Yes: takes Procrit every 10 days Hx Bruising Yes: on Plavix Hx Blood Transfusion Reaction No Comment: body doesnt produce RBC's like it should x's 20 yrs Premorbid Status: Detail (Pt lives alone in a 1 story house with basement, she stays on the first floor. She has 2 steps, no railing at the entrance. She has a walk in shower with a seat and grab bars as well as a standard height toilet with grab bars. She has a fence gate assembler who comes every 2 weeks and she is Ind with laundry and meal prep.) Precautions: [place], Fall, Other (WBAT left LE) - Time With Patient Total Time Spent With Patient (Min): 30 Treatment Procedures: Detail (Gait training, ther. ex, re-evaluation.) Subjective Information - Subjective Information Per Patient (The patient had complaints of sharp L knee pain at times. The patient did not rate her pain using 0-10 pain scale.) Objective Data - Mental Status Patient Orientation: Oriented x3 - Visual Perception Appears within normal limits for therapeutic activities - ROM Not within normal limits (The patient's L knee AROM was flexion 90 degrees, extension -9 degrees.) - Strength/Tone Not within normal limits (The patient's L quad strength improved to 3/5 ( initial 3-/5), hamstrings 4-/5, hip musculature 4/5, ankle musculature 4+/5.) - Bed Mobility Independent - Transfers Independent - Balance Balance Sitting: Good Balance Standing: Good - Sensation Intact - Gait Detail (The paitent ambulated independently with 2 wheeled walker a distance of 100 feet plus with WBAT on L LE. The patient ambulated with supervision for safety on 3 stairs using proper technique.) Patient Education - Patient Education Teaching Topic: Exercise/Activity (The patient was independent with TKA HEP including: heel slides seated, SAQ, ankle pumps, gluteal sets, quad sets, hamstring sets and SLR.) Response: Return Demonstration Teaching Method: Demonstration, Handout Teaching Recipient: Patient Barriers To Learning: Age Related Problem List - Problem List Physical Therapy Problem List: Detail (1) Non ambulatory on stairs 2) Decreased ambulation distance 3) Decreased L knee AROM and strength) Occupational Therapy Problem List: Detail (1. Need to further assess Ind and safety with showering. 2. Need to further assess IADL tasks.) Goals - Goals Physical Therapy Goals: 1) The patient will ambulate distances of 100 feet plus independently WBAT on th L LE with appropriate assistive device.(Goal Met). 2) The patient will ambulate on stairs with supervision using proper technique.( Goal Met). 3) The patient will be independent with TKA HEP progression. (Goal Met) Occupational Therapy Goals: 1. Pt will be Ind with showering in sitting. 2. Pt will be Ind with kitchen activity using walker and modified techniques. Prognosis - Prognosis Good Plan - Plan Physical Therapy Plan: The patient is to discharge from [facility] on 05/24/18 to home and is to receive Home PT. Occupational Therapy Plan: OT 1-2 additional visits to assess showering and IADLs.
[2018-05-23] MEDS: IPRATROPIUM 0.06% INH SCH (17:25)
[2018-05-23] MEDS: PATIENT OWN MED: AZATHIOPRINE 50 MG PO SCH (21:15)
[2018-05-23] MEDS: PINDOLOL 5 MG PO SCH (21:16)
[2018-05-23] MEDS: DIPHENHYDRAMINE 25 MG PO SCH (21:16)
[2018-05-23] MEDS: PATIENT OWN MED: CLOPIDOGREL 75 MG PO SCH (21:16)
[2018-05-24] MEDS: ACETAMINOPHEN W/ CODEINE 300MG/60MG TABLET PO PRN ×3 (03:11→11:00)
--- NOTE | 2018-05-24 07:46 | Discharge Summary ---
Providers Discharge Summary Date: 05/24/18 Date of admission: 05/20/18 08:38 Expected Date of Discharge: 05/24/18 Attending physician: PABLO JENSEN Primary care physician: LORETA BORDEN D.O. Physical Exam - Vital Signs Vital Signs: Vital Signs - Last 24 Hrs Temp Pulse Resp BP BP BP Pulse Ox 05/23/18 20:00 97.9 F 61 18 141/56 93 L 05/23/18 09:43 97.7 F 105/40 05/23/18 08:00 97.7 F 63 16 105/40 95 - General General Appearance: Alert, Oriented x3, Cooperative Limitations: No limitations - Head Head exam: Atraumatic, Normocephalic - Eye Eye exam: Normal appearance, PERRL (pupils pinpoint) - ENT ENT exam: Normal exam, Mucous membranes dry (hx Sjogren's), Normal external ear exam, Normal orophraynx, TM's normal bilaterally - Neck Neck exam: Normal inspection, Full ROM - Respiratory Respiratory exam: Normal lung sounds bilaterally. negative: Respiratory distress - Cardiovascular Cardiovascular Exam: Regular rate, Normal rhythm, Normal heart sounds Peripheral Pulses: 2+: Dorsalis Pedis (R), Dorsalis Pedis (L) - GI/Abdominal GI/Abdominal exam: Soft, Normal bowel sounds. negative: Distended - Extremities Extremities exam: Normal inspection, Joint swelling (left knee surgical site), Normal capillary refill, Pedal edema (trace L foot pedal edema ). negative: Calf tenderness - Back Back exam: Reports: Normal inspection - Neurological Neurological exam: Alert, Normal gait, Oriented X3, Reflexes normal - Psychiatric Psychiatric exam: Normal affect, Normal mood - Skin Skin exam: Other (NIKHIL dressing in place left knee. Less than 25% of dressing with sanguinous discharge) Hospitalization - Hospitalization Admission Diagnosis: needs for several rehab services due to fall. S/P left TKA - Hospitalization Course Disposition: Home Health Service Reason For Discharge/Transfer: Medical Stability Hospital Course: See Keiko's Summary Condition at Discharge: (1) Good Discharge Medications - Discharge Medications Prescriptions: Aspirin [Adult Aspirin Regimen] 81 mg PO DAILY #30 tablet. Docusate Sodium [Colace] 100 mg PO BID #60 cap Ferrous Sulfate [Iron] 325 mg PO DAILY #30 tablet Tramadol HCl [Ultram] 50 mg PO Q6H PRN #20 tablet PRN Reason: Pain - Mod To Severe (5-10) Home Medications: Ambulatory Orders Acetaminophen [Tylenol 325Mg] 650 mg PO Q4H PRN tablet 05/23/18 [Last Taken Unknown] Docusate Sodium [Colace] 100 mg PO BID #60 cap 05/23/18 [Last Taken Unknown] Ferrous Sulfate [Iron] 325 mg PO DAILY #30 tablet 05/23/18 [Last Taken Unknown] Tramadol HCl [Ultram] 50 mg PO Q6H PRN #20 tablet 05/23/18 [Last Taken Unknown] Aspirin [Adult Aspirin Regimen] 81 mg PO DAILY #30 tablet. 05/24/18 [Last Taken Unknown] Discharge Plan - Discharge Instructions Activity at Discharge: Increase Activity as Tolerated Diet at Discharge: Advance to Usual Diet Quality Measures - Quality Measures Quality Measures: Advance Directives, Documentation of Current Medications in Medical Record, Elder Maltreatment Screen and Follow-Up Plan, Screening for High Blood Pressure and F/U Documented - Current Medications Quality Measure: Measure #130: Documentation of Current Medications Documentation of Current Medications: <Current Medications Documented/Reviewed> [G8427] - Blood Pressure Screening Quality Measure: Screening for High Blood Pressure and Follow-Up Documented Does Patient Have Any of the Following: Active Dx of HTN Blood Pressure Classification: Normal BP Reading Systolic Measurement: 105 Diastolic Measurement: 40 Screening for High Blood Pressure: Patient Exclusion, Hx of HTN [G9744] - Advance Directives Quality Measure: Measure #47: Care Plan Advance Directives Established: Yes Advance Directives Information Provided To Patient: Declined Advance Directives on File: No Living Will: Yes Power of Lighting Specialist: No Advance Care Planning: <Care Plan/Decision Maker Documented; Discussed & Documented> [1123F] - Elder Abuse Suspicion Index Screening: Elder Abuse Suspicion Index Screening Rely on people for bathing, dressing, shopping, banking, etc: No Prevented from getting food, clothes, medication, etc: No Made to feel shamed or threatened by someone: No Forced to sign papers or use money against will: No Feel afraid, touched in ways not wanted or hurt physically: No Poor eye contact, withdrawn, malnourished, cuts or bruises: No Screening Result: Negative result EASI Reference Information: Aidan TORRES, Gala C, Blanche D, Ayden Ponce.Development and validation of a tool to assist physicians identification of elder abuse: The Elder Abuse Suspicion Index (EASI ). Journal of Elder Abuse and Neglect, 2008; 20 (3): 276-300. - Elder Maltreatment Screen Quality Measures: Elder Maltreatment Screen and Follow-Up Plan Elder Maltreatment Screen: <Negative, No Follow-Up Plan Required> [G8734]
[2018-05-24] MEDS: DOCUSATE SODIUM 100 MG CAPSULE PO SCH (09:54)
[2018-05-24] MEDS: FERROUS SULFATE 325 MG TAB PO SCH (09:54)
[2018-05-24] MEDS: ASPIRIN 325 MG TAB ENTERIC-COATED PO SCH (09:55)
[2018-05-24] MEDS: TRAMADOL HCL 50 MG TABLET PO PRN (09:59)
[2018-05-24] MEDS: REFRESH EYE OPTH SCH (11:02)
[2018-05-24] MEDS: PATIENT OWN MED: RANITIDINE 150 MG PO SCH (11:02)
[2018-05-24] MEDS: IPRATROPIUM 0.06% INH SCH (11:02)
[2018-05-24] MEDS: GABAPENTIN 100 MG PO SCH (11:02)
--- NOTE | 2018-05-25 15:26 | Rehab Discharge Summary ---
Patient Information - Patient Information Diagnosis: s/p left TKA Ordered Treatment: OT Evaluate and Treat Surgery: Yes (left TKA) Date of Surgery: 05/17/18 Past Medical/Surgical Hx: PAST MEDICAL/SURGICAL HISTORY Past Surgical History RTKA 10-19-17 hyst laparotomy bilat cats c scopes EGD with Dilitation PMH - Respiratory Hx Respiratory Disorders Yes Hx Bronchitis Yes Hx Pneumonia Yes Hx Sleep Apnea Yes Hx of CPAP No Hx of SOB Yes: once in a while PMH - Cardiovascular Hx Cardiovascular Disorders Yes Hx Abnormal EKG Yes Hx Edema Yes: minimally at night at times Hx Hypertension Yes: on meds good control runs low most of the time Hx Irregular Heartbeat Yes: PVC's and PAC's sometimes Hx Palpitations Yes Hx Vascular Disease Yes: has leaky aortic valve Hx Transient Ischemic Attacks Yes: yrs ago no residual on Plavix (TIA) Comment: r/t knee and back PMH - Neuro Hx Neurological Disorders Yes Hx Dizziness Yes Hx Headaches Yes: occassionally Hx Neuropathy Yes Hx Seizures No Hx Transient Ischemic Attacks Yes: yrs ago no residual on Plavix (TIA) PMH - GI Hx Gastrointestinal Disorders Yes Hx Gastroesophageal Reflux Yes Hx Weight Loss/Weight Gain Yes: losing weight 10 lbs recently 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 PMH - Hx Genitourinary Disorders Yes Hx Renal Disease Yes: stage 3 renal failure Comment: PT STATES RENAL FAILURE LABS WNL PMH - Endocrine Hx Endocrine Disorders No PMH - Musculoskeletal Hx Musculoskeletal Disorders Yes Hx Arthritis Yes: LEFT KNEE Comment: TLKA on 05/17/18 PMH - Psych Hx Psychiatric Problems No PMH - Hematology/Oncology Hx Hematology/Oncology Yes Disorders Hx Anemia Yes: takes Procrit every 10 days Hx Bruising Yes: on Plavix Hx Blood Transfusion Reaction No Comment: body doesnt produce RBC's like it should x's 20 yrs Premorbid Status: Detail (Pt lives alone in a 1 story house with basement, she stays on the first floor. She has 2 steps, no railing at the entrance. She has a walk in shower with a seat and grab bars as well as a standard height toilet with grab bars. 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 weeks and she is Ind with laundry and meal prep.) Precautions: [place], Fall, Other (WBAT left LE) Objective Data - Pain Pain Present: No - Mental Status Patient Orientation: Oriented x3 - Visual Perception Appears within normal limits for therapeutic activities - ROM Within normal limits (Manuel UE AROM WNL) - Strength/Tone Within normal limits (Manuel UE strength 4+/5) - Coordination Appears within normal limits for therapeutic activities - Bed Mobility Independent - Transfers Independent - Balance Balance Sitting: Good Balance Standing: Good - Sensation Intact - Gait Detail (Pt ambulating household distances with 2 wheeled walker Indly.) - ADL's/IADL's Detail (Pt able to complete total body dressing and showering in sitting and standing Indly, toileting Indly, grooming and hygiene tasks Indly.) Therapy Assessment - Therapy Assessment Detail (Pt is Ind with all ADL tasks.) Problem List - Problem List Physical Therapy Problem List: Detail (1) Non ambulatory on stairs 2) Decreased ambulation distance 3) Decreased L knee AROM and strength) Occupational Therapy Problem List: Detail (1. Need to further assess Ind and safety with showering. 2. Need to further assess IADL tasks.) Goals - Goals Physical Therapy Goals: 1) The patient will ambulate distances of 100 feet plus independently WBAT on L LE with appropriate assistive device.(Goal Met). 2) The patient will ambulate on stairs with supervision using proper technique.( Goal Met). 3) The patient will be independent with TKA HEP progression. (Goal Met) Occupational Therapy Goals: Goal Met: 1. Pt will be Ind with showering in sitting. Goal not met due to short rehab stay: 2. Pt will be Ind with kitchen activity using walker and modified techniques. Prognosis - Prognosis Good Plan - Plan Physical Therapy Plan: The patient is to discharge from [facility] on 05/24/18 to home and is to receive Home PT. Occupational Therapy Plan: Pt discharged home on 05/24/18.
== END 2018-05-24 12:40 | disposition home health service (06) | DRG 948 ==
LOC: MEDSURG 08:38
PROVIDERS: ADMIT Internal Medicine; ATTEND Internal Medicine
DX: R53.81 Other malaise (principal); G45.9 Transient cerebral ischemic attack, unspecified; Z96.652 Presence of left artificial knee joint; N18.3 Chronic kidney disease, stage 3 (moderate); I10 Essential (primary) hypertension; D53.9 Nutritional anemia, unspecified; E78.5 Hyperlipidemia, unspecified; Z79.01 Long term (current) use of anticoagulants; I35.1 Nonrheumatic aortic (valve) insufficiency; M06.9 Rheumatoid arthritis, unspecified; M32.9 Systemic lupus erythematosus, unspecified; M35.00 Sjogren syndrome, unspecified; Z87.891 Personal history of nicotine dependence
CPT/HCPCS: 97110; 97530; 97535; 99306; 99316